=== PATIENT | female | born 1955 | race Caucasian/White ===

== ENCOUNTER 2017-11-06 09:56 | Day surgery (SDC) | payer OTHER, SELFPAY ==
--- NOTE | 2017-11-06 07:01 | W.COLOREPORT ---
Colonoscopy Report Date of procedure: 11/06/17 Pre-op diagnosis general: Colon Cancer screening Post-op diagnosis procedure note: other (multiple polyps, one large polyp at 12 cm) Procedure: Colonoscopy with polypectomy by forceps and hot snare Surgeon: Valerie Espinoza Anesthesia proc note operative: MAC (Dewey Garcia, REANNA/ David Vickers, ETHAN) Estimated blood loss (mL): 10 Pathology: other (multiple polyps) Complications: None Disposition: same day Indications: Mrs. Klein is a pleasant 62 year old female who was seen in the office to discuss a colonoscopy. Risks, benefits and complications have been reviewed. Complications include but are not limited to bleeding, pain, perforation, missed small lesion/polyp, sore throat, aspiration and adverse reaction to the medications. Questions were entertained and answered to their satisfaction and they wished to proceed. No guarantees were given or implied. Prep: Miralax/Dulcolax Procedure Start Time: 11:53 Procedure End Time: 12:32 Retraction Time: 37 minutes Findings: Large sessile mass at 10-12 cm. Removed piecemeal with a hot snare. A second smaller polyp found in the rectosigmoid junction at 10-12 cm. 4 other polyps removed. 2 in the transverse colon and 2 in the mid sigmoid colon. Procedure Description: After informed consent was obtained the patient was taken to the procedure room and placed in a left decubitous position. Monitors were applied and a time out was done. The patients name, date of , procedure, allergies to medications and metal in their body was reviewed. The patient was then sedated. Once sedated and comfortable a rectal exam was done. External exam showed some mild prolapse. Internal exam revealed a normal sphincter tone and no palpable masses. The scope was then introduced and retrofelexed. No internal hemorrhoids were identified. The scope was then advanced to the cecum without difficulty. The TI and appendiceal orifice were identified. The prep was good. The scope was then slowly retracted over 37 minutes back into the rectum. 2 polyps were removed in the transverse colon with cold forceps. 2 polyps were removed in the midsigmoid colon with forceps. 1 small sessile polyp was removed with forceps at 10-12 cm. Right next to that was a large multi-lobulated sessile polyp that was removed piecemeal with a hot snare. The area was tatooed. The scope was removed and the patient was woken up and taken back to Same day surgery in stable condition. The patient tolerated the procedure well and there were no immediate complications. Follow up: I am concerned about the larger polyp having some cancer in it. I will call Ysabel with the results. If the results show just a precancerous polyp then I will recommend having a sigmoidoscopy at 3 months to recheck the area for regrowth. If there is cancer then she will most likely need a resection.
--- NOTE | 2017-11-06 07:03 | PDOC.DSDIS_ITS ---
Discharge Plan Disposition Patient Disposition: HOME Condition: Good Discharge Details Reason For Visit: SCREENING Attending Provider: Valerie Espinoza Primary Care Provider: Marycruz Quevedo Home Meds and New Rx's Prescriptions: Continue albuterol sulfate [ProAir HFA] 8.5 GM HFA aerosol inhaler 2 puff Inhalation Q6H PRN PRNRF: 0 ibuprofen 200 MG capsule 200 mg PO Q4H PRN RF: 0 losartan [Cozaar] 25 MG tablet 25 mg PO DAILY RF: 0 cholecalciferol (vitamin D3) 1,000 UNIT capsule 1,000 unit PO DAILY RF: 0 sertraline 100 MG tablet 100 mg PO DAILY RF: 0 Discontinued bisacodyl [Bisa-Lax] 5 MG tablet,delayed release (DR/EC) 5 mg PO as directed Qty: 4 RF: 0 polyethylene glycol 3350 255 GM powder 255 gm PO as directed for colo Qty: 255 RF: 0 Discharge Instructions Instructions: Colonoscopy (DC), Diverticulosis (DC), Colorectal Polyps (DC) Additional Instructions: Findings: several polyps. One large in the recto-sigmoid area Follow up: I will call with results New Medications: none Please call if you develop: fevers >101.5 Nausea or Vomiting Abdominal pain that is not transient 1. Because there will be medication in your system for the next 24 hours, you may feel a little sleepy. Your coordination will be affected. Therefore: a. Do not drive or operate dangerous equipment for 24 hours. b. Do not drink alcohol beverages for 24 hours (not even beer). c. Plan to go home and rest for the day. 2. Generally there are no restrictions on your activity after a day or so has gone by, but you may feel a bit fatigued for a few days. 3 After you arrive home you may have a light meal and return to a normal diet as you can tolerate it without feeling sick to your stomach. 4. After surgery, you may feel pain or discomfort. This should be only transient , but if it persists please contact your doctor. 5. If there are any questions regarding the findings of your procedure, please feel free to contact your doctor. 6. If you are unable to contact your doctor with a problem, contact the hospital at [phone]. 7. Continue all your regular medications unless directed otherwise. I understand the above instructions and have no questions. Signature of Patient or Responsible Adult Escort Date/Time Name of Responsible Adult Escort Signature of Nurse Date/Time Activity:: Activity as Tolerated Diet:: high fiber diet
--- NOTE | 2017-11-06 07:08 | HPE_ITS ---
Assessment and Plan (1) Encounter for colonoscopy due to history of adenomatous colonic polyps: Current visit: No Status: Acute P\\ Colonoscopy under sedation Risks, benefits and complications have been reviewed. Complications include but are not limited to bleeding, pain, perforation, missed lesion/polyp , sore throat, aspiration and adverse reaction to the medications. Questions were entertained and answered to their satisfaction and they wished to proceed. No guarantees were given or implied. (2) Hx of colonic polyps: Current visit: No Status: Acute History of Present Illness Narrative: Mrs. Klein is a pleasant 62 year old female who is here to discuss a colonoscopy. She states she had a colonoscopy 4 or 5 years ago and was found to have a polyp. She was asked to return in 3 years but she was dealing with other things and so didn't schedule. She has no had a no melena, hematochezia, abdominal pain, changes in bowel habits or family history of colon cancer. She has HTN which is controlled, no hx of chest pain or SOB. There have been no changes in her health since she was seen in the office. Review of Systems Cardiovascular Reports system reviewed and no additional complaints, except as docu Respiratory Reports system reviewed and no additional complaints, except as docu PFSH Family History Other Alzheimer's dementia CHF (congestive heart failure) Cardiac arrest Lung cancer Medical History Acquired auditory processing disorder Anxiety Benign skin lesion of nose High cholesterol Hypertension Low back pain Tubular adenoma Social History Smoking/Tobacco Use Status: Never Surgical History Arthroplasty of knee (01/14/10) Arthroscopy, Shoulder (05/12/09) Colonoscopy - IV Sedation Colonoscopy - MAC (08/14/17) Hysterectomy, Laproscopic (01/27/04) Meds Home Medications Medication Instructions Recorded Confirmed Type albuterol sulfate [ProAir HFA] 2 puff INHALATION Q6H PRN PRN 06/27/16 11/03/17 History inhaler sertraline 100 mg PO DAILY 04/28/17 11/06/17 History cholecalciferol (vitamin D3) 1,000 unit PO DAILY NS 06/13/17 11/06/17 History ibuprofen 200 mg PO Q4H PRN tab-cap NS 06/13/17 11/03/17 History losartan [Cozaar] 25 mg PO DAILY tab-cap NS 06/13/17 11/06/17 History bisacodyl [Bisa-Lax] 5 mg PO as directed #4 tab 08/11/17 11/06/17 Rx polyethylene glycol 3350 255 gm PO as directed for colo 08/11/17 11/06/17 Rx #255 gm Allergies Allergy/AdvReac Type Severity Reaction Status Date / Time Penicillins Allergy Unknown Unverified 11/06/17 10:25 lisinopril AdvReac cough Unverified 11/06/17 10:25 Exam Resp Effort & Inspection: normal respiratory effort Auscultation: clear to auscultation bilaterally Cardio Rate: regular rate Rhythm: regular rhythm Heart Sounds: no gallops, no murmurs and no rubs
[2017-11-06 10:13] VITALS: BP 134/77; PULSE 58; RESP 16; TEMP 36.6; O2SAT 96
[2017-11-06] MEDS: Lactated Ringers 1,000 ML 80 ML IV (10:56)
--- NOTE | 2017-11-06 12:31 | BOWEL_PTH ---
PATIENT: Ysabel Klein LOC: [facility] U#:[id number] AGE/SX: 62/F ROOM: RE11/06/[address]: Valerie Espinoza MD : 1955 BED: DIS: 11/06/2017 SPEC #: [id number] RECD: 11/06/17 18:13 STATUS: RUSSELL RE #: [id number] FREEDOM: 11/06/17 12:[address]: Valerie Espinoza DEPT: Surgical Specimen RECD BY: Estephania Jiménez ENTERED: 11/06/17 18:16 SP TYPE: Bowel OTHR DR: Marycruz Quevedo Tissues: 1 - BIOPSY BOWEL 2 - BIOPSY BOWEL 3 - BIOPSY BOWEL 4 - BIOPSY BOWEL Procedures: GROSS AND MICRO LEVEL 4 Comments: [id number]
[2017-11-06 13:10] VITALS: BP 137/86; PULSE 52; RESP 18; TEMP 36.9; O2SAT 97
== END 2017-11-06 13:35 | disposition home or self-care (01) ==
LOC: SUR 09:56
PROVIDERS: PCP Physician Assistant Medical; Visit Provider Surgery
PROC: 0DJD8ZZ Inspection of Lower Intestinal Tract, Via Natural or Artificial Opening Endoscopic (ICD-10-PCS; CPT 45378; principal; 2017-11-06 11:30)
DX: Z12.11 Encounter for screening for malignant neoplasm of colon (principal); Z86.010 Personal history of colon polyps; I10 Essential (primary) hypertension
CPT/HCPCS: 45380; 45385; 88305; NC

== ENCOUNTER 2018-03-01 08:49 | Day surgery (SDC) | payer OTHER, SELFPAY ==
--- NOTE | 2018-03-01 07:07 | W.PM.HP.N ---
Date of service: 03/01/18 Assessment and Plan (1) Encounter for colonoscopy due to history of adenomatous colonic polyps: Current visit: No Status: Acute P\\ Flexible sigmoidoscopy under sedation Risks, benefits and complications have been reviewed. Complications include but are not limited to bleeding, perforation, pain, missed lesion or polyp, sore throat, aspiration, and adverse reaction to the medications. Questions were entertained and answered to the patient's satisfaction and they wish to proceed. No guarantees were given or implied. History of Present Illness Narrative: Ysabel is here today to discuss a flexible sigmoidoscopy. Her last Colonoscopy was in November and she was foun to have a tubulovillous adenoma of the rectum which was a regrowth. It is sessile and a good size. There was no dysplacia on the pathology results. Because it had re-grown I asked for her to come back so we could do a flexible sigmoidoscopy in 3 months and make sure that there is no re-growth. If there is then She will need a resection. If possible I would like to see if a transrectal excision would be possible. The patient denies any changes in bowel habits, melena, hematochezia, abdominal pain, unintentional weight loss and family history of colon cancer. The patient denies any chest pain or shortness of breath with activity. Review of Systems Constitutional Denies fever(s) Cardiovascular Denies rapid heart rate, Denies irregular heart rhythm, Denies dyspnea and Denies dyspnea on exertion Respiratory Denies dyspnea and Denies dyspnea on exertion [facility] Medical History Tubulovillous adenoma of rectum (Acute ~11/2017) Acquired auditory processing disorder Anxiety Benign skin lesion of nose High cholesterol Hypertension Low back pain Tubular adenoma Surgical History Arthroplasty of knee (01/14/10) Arthroscopy, Shoulder (05/12/09) Colonoscopy - IV Sedation Colonoscopy - MAC (08/14/17) Hysterectomy, Laproscopic (01/27/04) Family History Other Alzheimer's dementia CHF (congestive heart failure) Cardiac arrest Lung cancer Social History Smoking/Tobacco Use Status: Never alcohol intake: never substance use type: does not use Meds Home Medications Medication Instructions Recorded Confirmed Type ProAir HFA 2 puff INHALATION Q6H PRN PRN 06/27/16 03/01/18 History inhaler sertraline 100 mg PO HS 04/28/17 03/01/18 History cholecalciferol (vitamin D3) 1,000 unit PO DAILY NS 06/13/17 03/01/18 History ibuprofen 200 mg PO Q4H PRN tab-cap NS 06/13/17 03/01/18 History amlodipine 5 mg PO HS 02/28/18 03/01/18 History Allergies Allergy/AdvReac Type Severity Reaction Status Date / Time Penicillins Allergy Unknown Unverified 03/01/18 09:13 lisinopril AdvReac cough Unverified 03/01/18 09:13 Exam Resp Effort & Inspection: normal respiratory effort Auscultation: clear to auscultation bilaterally Cardio Rate: regular rate Rhythm: regular rhythm Heart Sounds: no gallops, no murmurs and no rubs
[2018-03-01 09:15] VITALS: BP 123/70; PULSE 61; RESP 16; TEMP 36.2; O2SAT 96
[2018-03-01] MEDS: Lactated Ringers 1,000 ML 80 ML IV (09:15)
--- NOTE | 2018-03-01 10:45 | BOWEL_PTH ---
PATIENT: Ysabel Klein LOC: [facility] U#:[id number] AGE/SX: 62/F ROOM: RE03/01/[address]: Valerie Espinoza MD : 1955 BED: DIS: 03/01/2018 SPEC #: [id number] RECD: 03/01/18 12:56 STATUS: RUSSELL REQ #: [id number] FREEDOM: 03/01/18 10:[address]: Valerie Espinoza DEPT: Surgical Specimen RECD BY: Estephania Jiménez ENTERED: 03/01/18 12:58 SP TYPE: Bowel OTHR DR: Marycruz Quevedo Tissues: 1 - BIOPSY BOWEL Procedures: GROSS AND MICRO LEVEL 4 Comments: [id number]
[2018-03-01] MEDS: Endoscopic Tattoo 5 ML SYR IJ (10:53)
--- NOTE | 2018-03-01 10:58 | W.COLOREPORT ---
Date of service: 03/01/18 Time of Service: 10:41 Colonoscopy Report Date of procedure: 03/01/18 Pre-op diagnosis general: recurrent recto-sigmoid polyp Post-op diagnosis procedure note: same Procedure: Flexible sigmoidoscopy with partial resection of recurrent polyp and tattooing Surgeon: Valerie Espinoza Anesthesia proc note operative: MAC (Deyanira Efrainrandy, DREDGEMASTER/ ASA 2) Estimated blood loss (mL): 3 Pathology: other (polyp at 18 cm) Complications: None Disposition: same day Indications: Ysabel is back today for a flexible sigmoidoscopy. She had a polyp with dysplasia at her first colonoscopy which I thought I had completely removed but it was sessile so I had her come back in 6 months and we repeated the flexible sigmoidoscopy and unfortunately there was regrowth of the polyp. I again tried to remove it in its entirety this time it came back as a tubulovillous adenoma without dysplasia. I had her come back in 3 months to recheck and make sure there is no regrowth. Risks, benefits, complications were reviewed with her again and she wished to proceed. No guarantees were given or implied Prep: Other (enemas x2) Procedure Start Time: 10:41 Procedure End Time: 10:59 Findings: regrowth of sessile polyp at 16-18 cm. Rectosigmoid junction. Procedure Description: After informed consent was obtained the patient was taken to the procedure room and placed in a left decubitous position. Monitors were applied and a time out was done. The patients name, date of , procedure, allergies to medications and metal in their body was reviewed. The patient was then sedated. Once sedated and comfortable a rectal exam was done. External exam was normal. Internal exam revealed a normal sphincter tone and no palpable masses. The scope was then introduced and retro-flexed. No internal hemorrhoids were identified. The scope was then advanced to 16-18 cm were the tattoo was. There was regrowth of the sessile polyp noted. Part of the polyp was again removed with a hot snare and another tattoo was done. The scope was removed and the patient was woken up and taken back to Same day surgery in stable condition. The patient tolerated the procedure well and there were no immediate complications. Follow up: I will refer patient to [facility] [place] for possible transrectal excision vs endoscopic resection of the polyp.
--- NOTE | 2018-03-01 11:06 | COLE_ITS ---
Date of service: 03/01/18 Time of Service: 10:41 Colonoscopy Report Date of procedure: 03/01/18 Pre-op diagnosis general: recurrent recto-sigmoid polyp Post-op diagnosis procedure note: same Procedure: Flexible sigmoidoscopy with partial resection of recurrent polyp and tattooing Surgeon: Valerie Espinoza Anesthesia proc note operative: MAC (Deyanira Efrainrandy, SENIOR CATEGORY MANAGER/ ASA 2) Estimated blood loss (mL): 3 Pathology: other (polyp at 18 cm) Complications: None Disposition: same day Indications: Ysabel is back today for a flexible sigmoidoscopy. She had a polyp with dysplasia at her first colonoscopy which I thought I had completely removed but it was sessile so I had her come back in 6 months and we repeated the flexible sigmoidoscopy and unfortunately there was regrowth of the polyp. I again tried to remove it in its entirety this time it came back as a tubulovillous adenoma without dysplasia. I had her come back in 3 months to recheck and make sure there is no regrowth. Risks, benefits, complications were reviewed with her again and she wished to proceed. No guarantees were given or implied Prep: Other (enemas x2) Procedure Start Time: 10:41 Procedure End Time: 10:59 Findings: regrowth of sessile polyp at 16-18 cm. Rectosigmoid junction. Procedure Description: After informed consent was obtained the patient was taken to the procedure room and placed in a left decubitous position. Monitors were applied and a time out was done. The patients name, date of , procedure, allergies to medications and metal in their body was reviewed. The patient was then sedated. Once sedated and comfortable a rectal exam was done. External exam was normal. Internal exam revealed a normal sphincter tone and no palpable masses. The scope was then introduced and retro-flexed. No internal hemorrhoids were identified. The scope was then advanced to 16-18 cm were the tattoo was. There was regrowth of the sessile polyp noted. Part of the polyp was again removed with a hot snare and another tattoo was done. The scope was removed and the patient was woken up and taken back to Same day surgery in stable condition. The patient tolerated the procedure well and there were no immediate complications. Follow up: I will refer patient to [facility] [place] colorectal for possible transrectal excision vs endoscopic resection of the polyp.
--- NOTE | 2018-03-01 11:06 | W.PM.DSUDISC ---
Discharge Plan Disposition Patient Disposition: HOME Condition: Good Discharge Details Reason For Visit: Hx of adenomatous polyps Attending Provider: Valerie Espinoza Primary Care Provider: Marycruz Quevedo Home Meds and New Rx's Prescriptions: Continued ProAir HFA 8.5 GM HFA aerosol inhaler 2 puff Inhalation Q6H PRN PRNRF: 0 ibuprofen 200 MG capsule 200 mg PO Q4H PRN RF: 0 cholecalciferol (vitamin D3) 1,000 UNIT capsule 1,000 unit PO DAILY RF: 0 sertraline 100 MG tablet 100 mg PO HS RF: 0 amlodipine 5 mg Tablet 5 mg PO HS RF: 0 Discharge Instructions Instructions: Flexible Sigmoidoscopy (DC) Additional Instructions: Findings: Re-growth of polyp Follow up: I will refer you to [facility] [place] to see if they could remove this through the rectum vs taken part of the bowel out. Please call if you develop: fevers >101.5 Nausea or Vomiting Abdominal pain that is not transient DAY SURGERY UNIT POST COLONOSCOPY INSTRUCTIONS 1. Because there will be medication in your system for the next 24 hours, you may feel a little sleepy. Your coordination will be affected. Therefore: a. Do not drive or operate dangerous equipment for 24 hours. b. Do not drink alcohol beverages for 24 hours (not even beer). c. Plan to go home and rest for the day. 2. Generally there are no restrictions on your activity after a day or so has gone by, but you may feel a bit fatigued for a few days. 3 After you arrive home you may have a light meal and return to a normal diet as you can tolerate it without feeling sick to your stomach. 4. After surgery, you may feel pain or discomfort. This should be only transient, but if it persists please contact your doctor. 5. If there are any questions regarding the findings of your procedure, please feel free to contact your doctor. 6. If you are unable to contact your doctor with a problem, contact the hospital at [phone]. 7. Continue all your regular medications unless directed otherwise. I understand the above instructions and have no questions. Signature of Patient or Responsible Adult Escort Date/Time Name of Responsible Adult Escort Signature of Nurse Date/Time Activity:: Activity as Tolerated Diet:: As Tolerated DS: Diagnosis Discharge Diagnosis (1) Encounter for colonoscopy due to history of adenomatous colonic polyps: Status: Acute
[2018-03-01 11:17] VITALS: BP 132/83; PULSE 59; RESP 16; TEMP 36.6; O2SAT 95
== END 2018-03-01 12:22 | disposition home or self-care (01) ==
PROVIDERS: PCP Physician Assistant Medical; Visit Provider Surgery
PROC: 0DJD8ZZ Inspection of Lower Intestinal Tract, Via Natural or Artificial Opening Endoscopic (ICD-10-PCS; CPT 45330; principal; 2018-03-01 09:45)
DX: Z12.11 Encounter for screening for malignant neoplasm of colon (principal); D12.5 Benign neoplasm of sigmoid colon; Z86.010 Personal history of colon polyps; I10 Essential (primary) hypertension
CPT/HCPCS: 45380; 45381; 88305; NC

== ENCOUNTER 2018-05-25 12:46 | Outpatient (CLI) | payer OTHER, SELFPAY ==
--- NOTE | 2018-05-25 09:51 | DI.RAD_ITS ---
SYMPTOM/DIAGNOSIS: LT KNEE PAIN, M25.562 LEFT KNEE: Four views were obtained. There is narrowing of the medial tibiofemoral cartilaginous joint space. There may be slight lateral patellar subluxation. No significant bony abnormality is seen. 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
== END 2018-05-25 13:06 ==
PROVIDERS: PCP Physician Assistant Medical; Visit Provider Specialist/Technologist Athletic Trainer
DX: M25.562 Pain in left knee (principal); M17.12 Unilateral primary osteoarthritis, left knee
CPT/HCPCS: 73562

== ENCOUNTER 2018-11-13 06:18 | Day surgery (SDC) | payer OTHER, SELFPAY ==
[2018-11-13 06:28] VITALS: BP 110/71; PULSE 59; RESP 16; TEMP 36.6; O2SAT 95
--- NOTE | 2018-11-13 06:41 | W.PM.HP.N ---
Date of service: 11/13/18 Time of Service: 06:44 Assessment and Plan Assessment and plan (1) Tubulovillous adenoma of rectum: Status: Acute Assessment and plan: P\\ Colonoscopy under sedation Risks, benefits and complications have been reviewed. Complications include but are not limited to bleeding, pain, perforation, missed small lesion/polyp, sore throat, aspiration and adverse reaction to the medications. Questions were entertained and answered to their satisfaction and they wished to proceed. No guarantees were given or implied. History of Present Illness Narrative: Ysabel is back to see me today to discuss a colonoscopy. She underwent a Transanal excision of s tubulovillous adenoma at [facility] [place]. Thankfully there was no neoplasm within it. She has done well since then. A colonoscopy was recommended 1 year from her last full colonoscopy which would have been August. She denies any melena , hematochezia, abdominal pain or weight loss. She does tell me that her new normal for BM's has changed. She now has one BM in the morning that is very loose. There have been no new issues in her health since she was last seen in the office Review of Systems Constitutional Constitutional: Denies fever(s) Cardiovascular Cardiovascular: Denies chest pain, Denies irregular heart rhythm, Denies palpitations and Denies dyspnea Respiratory Respiratory: Denies cough and Denies dyspnea Endocrine Endocrine: Denies palpitations [facility] Medical History Acquired auditory processing disorder Anxiety Benign skin lesion of nose High cholesterol Hypertension Low back pain Tubular adenoma Tubulovillous adenoma of rectum (Acute ~11/2017) Surgical History Arthroplasty of knee (01/14/10) RIGHT Arthroscopy, Shoulder (05/12/09) RIGHT Colonoscopy - IV Sedation Colonoscopy - MAC (08/14/17) Hysterectomy, Laproscopic (01/27/04) Sigmoidoscopy exam (Acute ~02/2018) Family History Other Alzheimer's dementia CHF (congestive heart failure) Cardiac arrest Lung cancer Social History Smoking/Tobacco Use Status: Never Alcohol Intake: current Alcohol Intake frequency: holidays/special occasions only Alcohol type: beer Drug use: Never Substance use type: does not use Do you feel safe at home: Yes Do you feel safe in your relationship?: Yes Meds Home Medications and Allergies Home Medications Medication Instructions Recorded Confirmed Type albuterol sulfate [ProAir HFA] 2 puff INHALATION Q6H PRN PRN 06/27/16 11/13/18 History inhaler sertraline 100 mg PO HS 04/28/17 11/13/18 History cholecalciferol (vitamin D3) 1,000 unit PO DAILY NS 06/13/17 11/13/18 History ibuprofen 200 mg PO Q4H PRN tab-cap NS 06/13/17 11/13/18 History amlodipine 5 mg PO HS 02/28/18 11/13/18 History Allergies Allergy/AdvReac Type Severity Reaction Status Date / Time Penicillins Allergy Unknown Verified 11/09/18 10:19 lisinopril AdvReac cough Verified 11/09/18 10:19 Exam HENMT Head: normocephalic and atraumatic Resp Effort & Inspection: normal respiratory effort Auscultation: clear to auscultation bilaterally Cardio Rate: regular rate Rhythm: regular rhythm Heart Sounds: no gallops, no murmurs and no rubs GI Inspection: normal to inspection Palpation: soft and no hepatosplenomegaly Auscultation: normal bowel sounds Results Last Vital Signs Temp 97.9 F 11/13/18 06:28 Pulse 59 L 11/13/18 06:28 Resp 16 11/13/18 06:28 BP 110/71 11/13/18 06:28 Pulse Ox 95 11/13/18 06:28
--- NOTE | 2018-11-13 06:44 | W.COLOREPORT ---
Date of service: 11/13/18 Time of Service: 07:33 Colonoscopy Report Date of procedure: 11/13/18 Pre-op diagnosis general: Hx of tubulovillous adenoma Post-op diagnosis procedure note: other (polyps) Procedure: Colonoscopy with polypectomy Surgeon: Valerie Espinoza Anesthesia proc note operative: other (General/ ASA 2/Dewey chanel CRNA) Estimated blood loss (mL): 4 Pathology: other (sigmoid polyp and sigmoid polyp at previous resection site) Complications: None Disposition: same day Indications: Mrs. Klein is a pleasant 63-year-old female whom I know very well. She was noted to have a large flat tubulovillous adenoma that I tried to remove completely. I followed her every 6 months and it continued to recur. She was referred to [facility] colorectal surgery who was able to do a trans-anal resection of the polyp. The pathology thankfully came back as benign. Her colorectal surgeon recommended a colonoscopy 1 year after her last one. She is here for that today. Risks, benefits and complications have been reviewed. Complications include but are not limited to bleeding, pain, perforation, missed small lesion/polyp, sore throat, aspiration and adverse reaction to the medications. Questions were entertained and answered to their satisfaction and they wished to proceed. No guarantees were given or implied. Prep: Miralax/Dulcolax Procedure Start Time: :33 Procedure End Time: 07:56 Retraction Time: 14 minutes Findings: One small sessile polyp proximal to the previous resection site and sessile polyp surrounding the previous resection site Procedure Description: After informed consent was obtained the patient was taken to the procedure room and placed in a left decubitous position. Monitors were applied and a time out was done. The patients name, date of , procedure, allergies to medications and metal in their body was reviewed. The patient was then sedated. Once sedated and comfortable a rectal exam was done. External exam was normal. Internal exam revealed a normal sphincter tone and no palpable masses. The scope was then introduced and retro-flexed. No internal hemorrhoids, masses or polyps were identified. The scope was then advanced to the cecum with some difficulty due to tortuousity. The TI and appendiceal orifice were identified. The prep was adequate. The scope was then slowly retracted over 14 minutes back into the rectum. Polyps were removed with cold forceps in the sigmoid colon proximal to the previous resection site and biopsies were done of a sessile polyp surrounding the previous resection site. The scope was removed and the patient was woken up and taken back to Same day surgery in stable condition. The patient tolerated the procedure well and there were no immediate complications. Follow up: Depending on the pathology results. If there has been re-growth of the polyp at the resection site I will refer her back to Dr. Tolliver for his opinion of re-resection trans-anal or removal of the sigmoid colon.
--- NOTE | 2018-11-13 06:46 | W.PM.DSUDISC ---
Discharge Plan Disposition Patient Disposition: HOME Condition: Good Discharge Details Reason For Visit: SCREENING Attending Provider: Valerie Espinoza Primary Care Provider: Marycruz Quevedo Home Meds and New Rx's Prescriptions: Continued albuterol sulfate [ProAir HFA] 8.5 GM HFA aerosol inhaler 2 puff Inhalation Q6H PRN PRNRF: 0 ibuprofen 200 MG capsule 200 mg PO Q4H PRN RF: 0 cholecalciferol (vitamin D3) 1,000 UNIT capsule 1,000 unit PO DAILY RF: 0 sertraline 100 MG tablet 100 mg PO HS RF: 0 amlodipine 5 mg Tablet 5 mg PO HS RF: 0 Discharge Instructions Additional Instructions: Findings: 2 flat polyps. One is at the old resection site Follow up: I will call you with results, if the polyp has recurred then will have you follow up with Dr. Tolliver for his opinion on transanal re-resection vs removal of that part of your colon. Please call if you develop: fevers >101.5 Nausea or Vomiting Abdominal pain that is not transient DAY SURGERY UNIT POST ENDOSCOPY INSTRUCTIONS 1. Because there will be medication in your system for the next 24 hours, you may feel a little sleepy. Your coordination will be affected. Therefore: a. Do not drive or operate dangerous equipment for 24 hours. b. Do not drink alcohol beverages for 24 hours (not even beer). c. Plan to go home and rest for the day. 2. Generally there are no restrictions on your activity after a day or so has gone by, but you may feel a bit fatigued for a few days. 3 After you arrive home you may have a light meal and return to a normal diet as you can tolerate it without feeling sick to your stomach. 4. After surgery, you may feel pain or discomfort. This should be only transient, but if it persists please contact your doctor. 5. If there are any questions regarding the findings of your procedure, please feel free to contact your doctor. 6. If you are unable to contact your doctor with a problem, contact the hospital at [phone]. 7. Continue all your regular medications unless directed otherwise. I understand the above instructions and have no questions. Signature of Patient or Responsible Adult Escort Date/Time Name of Responsible Adult Escort Signature of Nurse Date/Time Activity:: Activity as Tolerated Diet:: As Tolerated Discharge Orders Discharge Orders: Discharge Order (Routine); Ordered 11/13/18 Ordered By: Valerie Espinoza DS: Diagnosis Discharge Diagnosis (1) Tubulovillous adenoma of rectum: Status: Acute
[2018-11-13] MEDS: Lactated Ringers 1,000 ML 80 ML IV (07:01)
--- NOTE | 2018-11-13 07:51 | BOWEL_PTH ---
PATIENT: Ysabel Klein LOC: [facility] U#:[id number] AGE/SX: 63/F ROOM: RE11/13/[address]: Valerie Espinoza MD : 1955 BED: DIS: 11/13/2018 SPEC #: [id number] RECD: 11/13/18 12:37 STATUS: RUSSELL REQ #: [id number] FREEDOM: 11/13/18 07:[address]: Valerie Espinoza DEPT: Surgical Specimen RECD BY: Estephania Jiménez ENTERED: 11/13/18 12:39 SP TYPE: Bowel OTHR DR: Marycruz Quevedo Tissues: 1 - BIOPSY BOWEL 2 - BIOPSY BOWEL Procedures: GROSS AND MICRO LEVEL 4 Comments: [id number]
[2018-11-13 08:30] VITALS: BP 105/71; PULSE 69; RESP 15; TEMP 36.4; O2SAT 97
== END 2018-11-13 09:15 | disposition home or self-care (01) ==
PROVIDERS: PCP Physician Assistant Medical; Visit Provider Surgery
PROC: 0DJD8ZZ Inspection of Lower Intestinal Tract, Via Natural or Artificial Opening Endoscopic (ICD-10-PCS; CPT 45378; principal; 2018-11-13 07:30)
DX: Z12.11 Encounter for screening for malignant neoplasm of colon (principal); D12.5 Benign neoplasm of sigmoid colon; K63.5 Polyp of colon; K63.89 Other specified diseases of intestine; Z86.010 Personal history of colon polyps; I10 Essential (primary) hypertension
CPT/HCPCS: 45380; 88305; NC; J2250; J3010

== ENCOUNTER 2019-01-18 01:58 | Outpatient (CLI) | payer OTHER, SELFPAY ==
--- NOTE | 2019-01-18 08:04 | DI.MAMMO_ITS ---
EXAM: MG MAMMO SCREENING CLINICAL HISTORY: SCREENING, Z12.31, PREVENTATIVE CARE, Z00.00 TECHNIQUE: Bilateral full field digital CC and MLO mammographic images were obtained with 3D tomosyn thesis and utilizing computer aided detection (CAD). COMPARISON: Available for comparison. FINDINGS: Masses/Architectural Distortion: None seen. Microcalcifications: No suspicious pleomorphic-type are seen. Skin Thickening/Nipple Retraction: None. IMPRESSION: 1. No significant interval change with no specific features of malignancy noted. 2. Unless there is more urgent need, screening mammography is recommended, as per [place] guidelines. ACR BI-RAD Category- 1 Negative Breast Density - Category B - Scattered areas of fibroglandular density A negative radiographic report should not delay biopsy if a dominant or clinically suspicious mass is present. Up to ten percent of cancers are not identified on mammography. A negative report may reinforce clinical impression. Adenosis and dense breasts may obscure an underlying neoplasm. False positive reports average 6 to 10%. Patient will receive a letter notifying them of these results.
== END 2019-01-18 02:18 ==
PROVIDERS: PCP Physician Assistant Medical; Visit Provider Physician Assistant Medical
DX: Z12.31 Encounter for screening mammogram for malignant neoplasm of breast (principal); Z00.00 Encounter for general adult medical examination without abnormal findings
CPT/HCPCS: 77063; 77067

== ENCOUNTER 2019-02-15 02:14 | Outpatient (CLI) | payer OTHER, SELFPAY ==
--- NOTE | 2019-02-15 13:21 | NS.NUTBLAN_ITS ---
Description: Met with Ysabel today in office to discuss her diet/GI symptoms s/p removal of 6 inches of her colon secondary to polyp removal 6 weeks ago. Ysabel appears well nourished. Ysabel reports confusion of what she should eat s/p surgery and reports that diarrhea has subsided however continues to have rectal pain most days. Diet recall indicates Ysabel does not drink enough fluids and her diet is low in fiber and protein. Explained to Ysabel that GI symptoms common s/p surgery but may also be likely due to lack of hydration and fiber in diet. Intervention: Reviewed with Ysabel optimal diet s/p colon resection. Encouraged increased intake of fruits/vegetables, avoidance of insoluable fiber and increase of lean protein, whole wheat grains and healthy fats. Education material provided. Plan: follow up with MD if symptoms of concern, fu with continuity writer if continues to need assistance in diet education. recommend 1 -2 serving metamucil daily as well. Maria Ines Faye, , RDN
== END 2019-02-15 02:34 ==
PROVIDERS: PCP Physician Assistant Medical; Visit Provider Dietitian, Registered
DX: K63.5 Polyp of colon (principal); D12.5 Benign neoplasm of sigmoid colon; Z98.890 Other specified postprocedural states; Z71.3 Dietary counseling and surveillance
CPT/HCPCS: 97802

== ENCOUNTER 2019-09-25 17:48 | Outpatient (REF) | payer OTHER, SELFPAY ==
[2019-09-27 11:34] LABS: Campylobacter PCR Negative (Negative); Salmonella PCR Negative (Negative); Shiga Toxin PCR Negative (Negative); Shigella/Enteroinvasive Ecoli Negative (Negative)
== END 2019-09-25 18:08 ==
LOC: NCHCN 17:48
PROVIDERS: PCP Physician Assistant Medical; Visit Provider Physician Assistant Medical
DX: R19.7 Diarrhea, unspecified (principal)
CPT/HCPCS: 87329; 87505; 83630; 87324

== ENCOUNTER 2019-09-30 16:27 | Outpatient (REF) | payer OTHER, SELFPAY | END 2019-09-30 16:47 | LOC: NCHCN 16:27 | PROVIDERS: PCP Physician Assistant Medical; Visit Provider Physician Assistant Medical | DX: R19.7 Diarrhea, unspecified (principal) | CPT/HCPCS: 83630; 87324 ==

== ENCOUNTER 2019-10-08 00:31 | Outpatient (CLI) | payer OTHER, SELFPAY ==
[2019-10-08 07:55] LABS: Abs Immature Grans 0.01 10^3/uL (0.0-0.06); Absolute Basophil Count 0.05 10^3/uL (0.0-0.2); Absolute Eosinophil Count 0.22 10^3/uL (0.0-0.7); Absolute Lymphocyte Count 1.38 10^3/uL (1.2-3.4); Absolute Monocyte Count 0.74 10^3/uL (0.1-0.8); Absolute Neutrophil Count 3.37 10^3/uL (1.2-6.7); Basophils % 0.9; Eosinophils % 3.8; HCT 41.8 % (36.0-46.0); Immature Grans % 0.2; Lymphocytes % 23.9; MCH 30.7 pg (27.0-33.0); MCHC 33.5 % (32.0-36.0); MCV 91.7 fL (80-95); MPV 10.1 fL (8.0-11.0); Monocytes % 12.8; Neutrophils % 58.4; Nucleated RBC 0 %; Platelet Count 281 10^3/uL (130-400); RBC 4.56 10^6/uL (3.93-5.22); RDW 12.3 % (11.7-14.6); RDW-SD 41.3 fL; WBC 5.77 10^3/uL (4.4-10.8)
[2019-10-08 08:22] LABS: ALT 24 U/L (14-59); AST 17 U/L (15-37); Albumin 4.2 g/dL (3.4-5.0); Alkaline Phosphatase 61 U/L (46-116); BUN 16 mg/dL (7-18); Bilirubin, Total 0.6 mg/dL (0.2-1.0); CREATININE 0.79 mg/dL (0.55-1.02); Calcium 9.6 mg/dL (8.5-10.1); Calculated LDL 133 mg/dL (<100); Chloride 106 mmol/L (98-107); Cholesterol 217 mg/dL (<200); Glucose 110 mg/dL (74-106); HDL Cholesterol 56 mg/dL (40-60); Potassium 3.7 mmol/L (3.5-5.1); Sodium 142 mmol/L (136-145); Total Protein 7.8 g/dL (6.4-8.2); Triglyceride 140 mg/dL (<150)
[2019-10-08 09:07] LABS: ESR 16 mm/hr (0-30)
--- NOTE | 2019-10-08 09:12 | DI.CT_ITS ---
EXAM: CT ABDOMEN PELVIS W INDICATION: PERSISTENT DIARRHEA,R19.7,TUBULAR ADENOMA OF COLON,D12.6. COMPARISON: No exams were available for comparison TECHNIQUE: FINDINGS: CT examination of the abdomen and pelvis was performed with a bolus infusion of 89 cc of Omnipaque 35 0. Images obtained through the lung bases are unremarkable. Liver, spleen and pancreas appear normal. Gallbladder and bile ducts are CT normal. Adrenals appear normal bilaterally. Right kidney and left kidney are noted to have small cortical cy sts. There is a tiny nonobstructing left renal midpole calculus. No ureteral calcification. Urinar y bladder unremarkable. No hydronephrosis.. Abdominal aorta is of normal diameter and no major vascular abnormality is seen. No abdominal wall hernia. No abdominal or pelvic adenopathy. [employer] structures appear intact for age. Appendix is normal. No evidence of diverticulitis or bowel obs truction. Prior rectosigmoid anastomosis noted. No evidence of leakage. No pelvic adenopathy or fl uid collection. IMPRESSION: No evidence of acute intra-abdominal process. RADIATION DOSE DELIVERED: 1,033.24mGy.cm Total DLP 1,033.24mGy.cm Total DLP
[2019-10-08] MEDS: Omnipaque 350 MG/ML 100 ML BTL IJ (09:16)
== END 2019-10-08 00:51 ==
PROVIDERS: PCP Physician Assistant Medical; Visit Provider Physician Assistant Medical
DX: R19.7 Diarrhea, unspecified (principal); D12.6 Benign neoplasm of colon, unspecified; Z00.00 Encounter for general adult medical examination without abnormal findings; I10 Essential (primary) hypertension
CPT/HCPCS: 80053; 80061; 85652; 74177; 85025; J3490

== ENCOUNTER 2019-11-13 06:23 | Day surgery (SDC) | payer BC, SELFPAY ==
[2019-11-13 06:42] VITALS: BP 119/85; PULSE 65; RESP 16; TEMP 36.7; O2SAT 96
--- NOTE | 2019-11-13 06:44 | W.COLOREPORT ---
Date of service: 11/13/19 Time of Service: 07:50 Colonoscopy Report Date of procedure: 11/13/19 Pre-op diagnosis general: Diarrhea, Hx of polyps Post-op diagnosis procedure note: other (same and sigmoid colon polyp) Procedure: Colonoscopy with polypectomy Surgeon: Valerie Espinoza Anesthesia proc note operative: other (general/ ASA /) Estimated blood loss (mL): 2 Pathology: other (sigmoid polyp) Complications: None Disposition: same day Indications: Ysabel has been having 10 loose stools per day for the last months. She is worried about another large polyp. Differential diagnosis includes colon mass/large polyp, IBS after Gastroenteritis, Colonoscopy under sedation Risks, benefits and complications have been reviewed. Complications include but are not limited to bleeding, pain, perforation, missed small lesion/polyp, sore throat, aspiration and adverse reaction to the medications. Questions were entertained and answered to their satisfaction and they wished to proceed. No guarantees were given or implied. Prep: Miralax/Dulcolax Procedure Start Time: 07:25 Procedure End Time: 07:44 Retraction Time: 12 minutes Findings: 1. Mild diverticulosis of descending and sigmoid colon 2. One small sigmoid polyp at the anastamosis 3. Wide open anastamosis Procedure Description: After informed consent was obtained the patient was taken to the procedure room and placed in a left decubitous position. Monitors were applied and a time out was done. The patients name, date of , procedure, allergies to medications and metal in their body was reviewed. The patient was then sedated. Once sedated and comfortable a rectal exam was done. External exam was normal. Internal exam revealed a normal sphincter tone and no palpable masses. The scope was then introduced and retro-flexed. No internal hemorrhoids were identified. The scope was then advanced to the cecum without difficulty. The ileocecal valve and appendiceal orifice were identified. The prep was good. The scope was then slowly retracted over 12 minutes back into the rectum. Polyps were removed with cold forceps in the sigmoid colon x1. There was mild diverticulosis noted in the descending and sigmoid colon. There was a wide open side by side anastamosis. There was no recurrence of polyp at the anastamosis. There was no strictures noted. The scope was removed and the patient was woken up and taken back to Same day surgery in stable condition. The patient tolerated the procedure well and there were no immediate complications. Follow up: The patient should follow up in 5 years unless they develop changes in bowel habits or other new gastrointestinal complaints.
--- NOTE | 2019-11-13 06:45 | W.PM.DSUDISC ---
Discharge Plan Disposition Patient Disposition: HOME Condition: Good Discharge Details Reason For Visit: diarrhea, hx of colon polyps Attending Provider: Valerie Espinoza Primary Care Provider: Marycruz Quevedo Home Meds and New Rx's Prescriptions: Continued ibuprofen 200 MG capsule 200 mg PO Q4H PRN RF: 0 cholecalciferol (vitamin D3) 1,000 UNIT capsule 1,000 unit PO DAILY RF: 0 sertraline 100 MG tablet 100 mg PO HS RF: 0 amlodipine 5 mg Tablet 5 mg PO HS RF: 0 Discharge Instructions Additional Instructions: Findings: one small benign appearing polyp. Anastamosis was wide open Follow up: 5 years Please call if you develop: fevers >101.5 Nausea or Vomiting Abdominal pain that is not transient DAY SURGERY UNIT POST ENDOSCOPY INSTRUCTIONS 1. Because there will be medication in your system for the next 24 hours, you may feel a little sleepy. Your coordination will be affected. Therefore: a. Do not drive or operate dangerous equipment for 24 hours. b. Do not drink alcohol beverages for 24 hours (not even beer). c. Plan to go home and rest for the day. 2. Generally there are no restrictions on your activity after a day or so has gone by, but you may feel a bit fatigued for a few days. 3 After you arrive home you may have a light meal and return to a normal diet as you can tolerate it without feeling sick to your stomach. 4. After surgery, you may feel pain or discomfort. This should be only transient, but if it persists please contact your doctor. 5. If there are any questions regarding the findings of your procedure, please feel free to contact your doctor. 6. If you are unable to contact your doctor with a problem, contact the hospital at [phone]. 7. Continue all your regular medications unless directed otherwise. I understand the above instructions and have no questions. Signature of Patient or Responsible Adult Escort Date/Time Name of Responsible Adult Escort Signature of Nurse Date/Time Activity:: Activity as Tolerated Diet:: As Tolerated Discharge Orders Discharge Orders: Discharge Order (Routine); Ordered 11/13/19 Ordered By: Valerie Espinoza
[2019-11-13] MEDS: Lactated Ringers 1,000 ML 80 ML IV (07:08)
--- NOTE | 2019-11-13 07:42 | BOWEL_PTH ---
PATIENT: Ysabel Klein LOC: [facility] U#:[id number] AGE/SX: 64/F ROOM: RE11/13/[address]: Valerie Espinoza MD : 1955 BED: DIS: 11/13/2019 SPEC #: [id number] RECD: 11/13/19 12:39 STATUS: RUSSELL REQ #: [id number] FREEDOM: 11/13/19 07:[address]: Valerie Espinoza DEPT: Surgical Specimen RECD BY: Estephania Jiménez ENTERED: 11/13/19 12:39 SP TYPE: Bowel OTHR DR: Marycruz Quevedo Tissues: 1 - BIOPSY BOWEL Procedures: GROSS AND MICRO LEVEL 4 Comments: [id number]
[2019-11-13 08:26] VITALS: BP 125/84; PULSE 68; RESP 16; TEMP 36.4; O2SAT 94
== END 2019-11-13 08:44 | disposition home or self-care (01) ==
PROVIDERS: PCP Physician Assistant Medical; Visit Provider Surgery
PROC: 0DJD8ZZ Inspection of Lower Intestinal Tract, Via Natural or Artificial Opening Endoscopic (ICD-10-PCS; CPT 45378; principal; 2019-11-13 07:30)
DX: R19.7 Diarrhea, unspecified (principal); Z86.010 Personal history of colon polyps; K57.30 Diverticulosis of large intestine without perforation or abscess without bleeding; Z98.0 Intestinal bypass and anastomosis status
CPT/HCPCS: 45380; 88305; J2001

== ENCOUNTER 2020-03-02 00:58 | Outpatient (CLI) | payer BC, SELFPAY ==
--- NOTE | 2020-03-02 | DI.MAMMO_ITS ---
EXAM: MG MAMMO SCREENING CLINICAL HISTORY: SCREENING, [facility],Z00.00 TECHNIQUE: Bilateral full field digital CC and MLO mammographic images were obtained with 3D tomosyn thesis and utilizing computer aided detection (CAD). COMPARISON: Available for comparison. FINDINGS: Masses/Architectural Distortion: Asymmetric breast tissue in the upper central left breast on the med iolateral oblique view which appears more prominent compared to the prior examination. Microcalcifications: No suspicious pleomorphic-type are seen. Skin Thickening/Nipple Retraction: None. IMPRESSION: 1. Asymmetric breast tissue in the upper central left breast on the MLO view. 2. This area should be further evaluated with a spot compression view. Ultrasound may be indicated a t that time. BI-RADS Category 0 - Assessment Incomplete: Need additional imaging evaluation Breast Density - Category B - Scattered areas of fibroglandular density Breast density category C or D implies that the patient has dense breast tissue. Dense breast tissue is very common and is not abnormal but dense breast tissue can make it harder to find cancer on a ma mmogram. Also, dense breast tissue may increase their breast cancer risk. This information about the result of the mammogram report was provided to the patient to raise their awareness. Use this report when you speak with the patient about their risks for breast cancer, which includes their family hist ory. At that time, you may recommend for more screening tests (Ultrasound or MRI) as they might be us eful based on their risk. A negative radiographic report should not delay biopsy if a dominant or clinically suspicious mass is present. Up to ten percent of cancers are not identified on mammography. A negative report may reinforce clinical impression. Adenosis and dense breasts may obscure an underlying neoplasm. False positive reports average 6 to 10%. Patient will receive a letter notifying them of these results.
== END 2020-03-02 01:18 ==
PROVIDERS: PCP Physician Assistant Medical; Visit Provider Physician Assistant Medical
DX: Z12.31 Encounter for screening mammogram for malignant neoplasm of breast (principal); R92.8 Other abnormal and inconclusive findings on diagnostic imaging of breast
CPT/HCPCS: 77063; 77067

== ENCOUNTER 2020-03-06 03:05 | Outpatient (CLI) | payer BC, SELFPAY ==
--- NOTE | 2020-03-06 14:28 | DI.MAMMO_ITS ---
EXAM: MG MAMMO SCREEN CALL BACK UNI and U/S breast LT limited CLINICAL HISTORY: F/U MAMMO, ASYMMETRIC BREAST TISSUE UPPER CENTRAL LT BREAST. TECHNIQUE: Craniocaudal and mediolateral oblique Full Field Digital Mammography views of the left br east with Computer Aided Diagnosis followed by Tomosynthesis and left breast ultrasound. COMPARISON: Comparison with prior examinations. FINDINGS: Mammography/Tomosynthesis: Masses/Architectural Distortion: The asymmetric density in the upper left breast has a similar appear ance compared to prior examinations dating back to 2010. Microcalcifictions: No suspicious pleomorphic-type are seen. Skin Thickening/Nipple Retraction: None. Left breast US: Echotexture: Normal appearance of the glandular tissue. Shadowing: No suspicious foci. Cyst: None. Solid lesions: None seen. Ductal dilation: None. IMPRESSION: 1. No evidence of malignancy is noted. 2. Unless there is more urgent need, follow-up screening mammography is recommended, as per [place] [employer] guidelines. 3. The findings were discussed with the patient on the date of the examination. BI-RADS Category 1 - Negative Breast Density - Category B - Scattered areas of fibroglandular density Breast density Category C or D implies that the patient has dense breast tissue. Dense breast tissue can make it harder to find cancer on a mammogram. Dense breast tissue is also associated with an incr eased risk of breast cancer. This information about the result of the mammogram report was provided to the patient to raise their awareness. Use this report when you speak with the patient about their risks for breast cancer, which includes their family history. At that time, you may recommend additional screening tests (Ultrasoun d or MRI) as these tests may add significant information. A negative radiographic report should not delay biopsy if a dominant or clinically suspicious mass is present. Up to ten percent of cancers are not identified on mammography. A negative report may reinforce clinical impression. Adenosis and dense breasts may obscure an underlying neoplasm. False positive reports average 6 to 10%. Patient will receive a letter notifying them of these results.
== END 2020-03-06 03:25 ==
PROVIDERS: PCP Physician Assistant Medical; Visit Provider Physician Assistant Medical
DX: R92.8 Other abnormal and inconclusive findings on diagnostic imaging of breast (principal); N64.89 Other specified disorders of breast
CPT/HCPCS: 76642; 77063; 77067

== ENCOUNTER 2020-11-10 17:04 | Outpatient (REF) | payer BC, SELFPAY ==
[2020-11-12 10:48] LABS: COVID-19 RT-PCR UVMMC Result Negative (Negative)
== END 2020-11-10 17:05 | disposition home or self-care (01) ==
LOC: NCHCN 17:04
PROVIDERS: PCP Physician Assistant Medical; Visit Provider Nurse Practitioner Family
DX: Z20.822 Contact with and (suspected) exposure to COVID-19 (principal)
CPT/HCPCS: U0003

== ENCOUNTER 2020-11-25 17:42 | Outpatient (REF) | payer BC, SELFPAY ==
[2020-11-25 21:12] LABS: Hemoglobin A1C 5.8 % (<5.7)
[2020-11-25 21:15] LABS: ALT 26 U/L (14-59); AST 18 U/L (15-37); Albumin 4.4 g/dL (3.4-5.0); Alkaline Phosphatase 70 U/L (46-116); Anion Gap 9.5 mmol/L (3-11); BUN 12 mg/dL (7-18); Bilirubin, Total 0.8 mg/dL (0.2-1.0); CO2 27.5 mmol/L (21.0-32.0); CREATININE 0.8 mg/dL (0.55-1.02); Calcium 9.5 mg/dL (8.5-10.1); Calculated LDL 159 mg/dL (<100); Chloride 104 mmol/L (98-107); Cholesterol 238 mg/dL (<200); Glucose 86 mg/dL (74-106); HDL Cholesterol 61 mg/dL (40-60); Potassium 4.1 mmol/L (3.5-5.1); Sodium 141 mmol/L (136-145); Total Protein 7.7 g/dL (6.4-8.2); Triglyceride 93 mg/dL (<150)
== END 2020-11-25 17:43 | disposition home or self-care (01) ==
LOC: NCHCN 17:42
PROVIDERS: PCP Physician Assistant Medical; Visit Provider Physician Assistant Medical
DX: I10 Essential (primary) hypertension (principal); R73.9 Hyperglycemia, unspecified
CPT/HCPCS: 80053; 80061; 83036

== ENCOUNTER 2021-05-05 00:32 | Outpatient (CLI) | payer BC, SELFPAY ==
--- NOTE | 2021-05-05 07:50 | DI.MAMMO_ITS ---
Exam(s) MAMMO SCREENING EXAM: MAMMO SCREENING CLINICAL HISTORY: SCREENING, [facility], Z00.00. TECHNIQUE: Bilateral full field digital CC and MLO mammographic images were obtained with 3D tomosyn thesis and utilizing computer aided detection (CAD). COMPARISON: Prior mammograms were reviewed, the most recent being February 2020. Ultrasound February 2020 was also reviewed. FINDINGS: The previously described asymmetric density posteriorly in the left breast is again noted exhibiting minimal if any change. This is approximately 12 o'clock. Appearance on the MLO view is also unchang ed There are no new spiculated masses nor malignant appearing microcalcification groups. There is no significant architectural distortion nor skin thickening-retraction. IMPRESSION: No radiographic evidence of malignancy. BI-RADS Category 1 - Negative Breast Density - Category B - Scattered areas of fibroglandular density Breast density Category C or D implies that the patient has dense breast tissue. Dense breast tissue can make it harder to find cancer on a mammogram. Dense breast tissue is also associated with an incr eased risk of breast cancer. This information about the result of the mammogram report was provided to the patient to raise their awareness. Use this report when you speak with the patient about their risks for breast cancer, which includes their family history. At that time, you may recommend additional screening tests (Ultrasoun d or MRI) as these tests may add significant information. A negative radiographic report should not delay biopsy if a dominant or clinically suspicious mass is present. Up to ten percent of cancers are not identified on mammography. A negative report may reinforce clinical impression. Adenosis and dense breasts may obscure an underlying neoplasm. False positive reports average 6 to 10%. Patient will receive a letter notifying them of these results.
== END 2021-05-05 00:52 ==
PROVIDERS: PCP Physician Assistant Medical; Visit Provider Physician Assistant Medical
DX: Z12.31 Encounter for screening mammogram for malignant neoplasm of breast (principal)
CPT/HCPCS: 77063; 77067

== ENCOUNTER 2021-08-02 13:01 | Outpatient (REF) | payer BC, SELFPAY ==
[2021-08-02 16:29] LABS: ALT 25 U/L (14-59); AST 31 U/L (15-37); Albumin 3.7 g/dL (3.4-5.0); Alkaline Phosphatase 62 U/L (46-116); Anion Gap 10.1 mmol/L (3-11); BUN 14 mg/dL (7-18); Bilirubin, Total 0.9 mg/dL (0.2-1.0); CO2 21.9 mmol/L (21.0-32.0); CREATININE 0.8 mg/dL (0.55-1.02); Chloride 104 mmol/L (98-107); Glucose 112 mg/dL (74-106); Potassium 3.8 mmol/L (3.5-5.1); Sodium 136 mmol/L (136-145); Total Protein 7.1 g/dL (6.4-8.2)
[2021-08-02 23:33] LABS: Calculated LDL 107 mg/dL (<100); Cholesterol 199 mg/dL (<200); HDL Cholesterol 62 mg/dL (40-60); Triglyceride 150 mg/dL (<150)
== END 2021-08-02 13:02 | disposition home or self-care (01) ==
LOC: NCHCN 13:01
PROVIDERS: PCP Physician Assistant Medical; Visit Provider Physician Assistant Medical
DX: R73.03 Prediabetes (principal); E78.70 Disorder of bile acid and cholesterol metabolism, unspecified
CPT/HCPCS: 80053; 80061; 83036

== ENCOUNTER → 2021-08-19 01:24 | Outpatient (CLI) | payer BC, SELFPAY ==
--- NOTE | 2021-08-19 | DI.MRI_ITS ---
Exam(s) MR LUMBAR SPINE WO EXAM: MR LUMBAR SPINE WO CLINICAL HISTORY: LOW BACK PAIN, M54.5. TECHNIQUE: Multiplanar multisequence MRI of the Lumbar spine was performed. COMPARISON: Plain films available time this MRI interpretation. FINDINGS: Five lumbar vertebrae are presumed. Conus medullaris is at normal level. There is no evidence of conus mass nor subjacent clumping of in trathecal nerve roots to suggest arachnoiditis. The distal thecal sac appears unremarkable.There is no evidence of Tarlov intrasacral cysts nor other significant findings within the sacral canal Bones:There are no fractures nor ominous osseous lesions in the lumbar vertebral bodies and visualize d sacrum. Modic type 1 sub endplate marrow edema changes are seen at L3-4 level. See below PET With respect to the individual levels... T12-L1: Unremarkable L1-2: Normal disc height and signal. No disc herniation nor central canal stenosis.No foraminal steno sis L2-3: Preserved disc height. Mild decreased disc hydration signal. Broad annular bulging noted with superimposed accentuation of annular bulging lateral left and extending into the floor of the exiti ng left neural foramen.Central canal dimensions are lower normal.Exiting right neural foramen unremar kable. Annular bulging is seen in the floor of the left exiting neural foramen although there does n ot appear to be prominent foraminal stenosis at this level. Minimal facet joint degenerative changes seen at this level. L3-4: This level exhibits asymmetric disc space narrowing which is more severe on the right side wher e there also lateral right osteophytes and Modic type 1 sub endplate marrow edema changes at this lev el. There is mild central spinal canal stenosis due to the annular bulging and short AP dimensions o f the pedicles. No significant foraminal stenosis on the left side. However, on the right side ther e is mild-moderate foraminal stenosis due to the asymmetric disc height loss at this level and mild d egenerative facet degenerative changes. L4-5: This level exhibits chronic uniform advanced disc space narrowing. No edema in the sub endplat e marrow. Posterior annular bulging, more so right of center. Mild central canal stenosis. There i s mild bilateral vertical foraminal stenosis due to disc height loss and mild annular bulging at the level of the floor of the exiting neural foramina bilaterally. Right facet joint unremarkable. Mild degenerative changes in the left facet joint. L5-S1: This level exhibits relatively preserved disc height and signal. However, there is a central- left paracentral disc protrusion at this level. This extends posteriorly 3 millimeters and is approx imately 1 cm wide and indents the anterior thecal sac. Central canal dimensions are lower normal. T here is no foraminal stenosis on the right side at this level. Mild foraminal stenosis on the left s penny at this level due to asymmetric left facet arthropathy. There is no or thrombus in the right fac et at this level. Soft tissues: Left kidney cysts noted. IMPRESSION: 1. Multilevel disc level findings as described individually above. Mild central canal stenosis at L3 -4 and L4-5 levels.. Asymmetric foraminal stenosis as described above DATA REPOSITORY:
== END ==
PROVIDERS: PCP Physician Assistant Medical; Visit Provider Physician Assistant Medical
DX: M48.061 Spinal stenosis, lumbar region without neurogenic claudication (principal)
CPT/HCPCS: 72148

== ENCOUNTER 2021-11-01 18:04 | Outpatient (REF) | payer BC, SELFPAY ==
[2021-11-01 12:58] LABS: C Diff PCR Negative (Negative)
[2021-11-02 11:14] LABS: Campylobacter PCR Negative (Negative); Salmonella PCR Negative (Negative); Shiga Toxin PCR Negative (Negative); Shigella/Enteroinvasive Ecoli Negative (Negative)
== END 2021-11-01 18:05 | disposition home or self-care (01) ==
LOC: NCHCN 18:04
PROVIDERS: PCP Physician Assistant Medical; Visit Provider Internal Medicine
DX: R19.7 Diarrhea, unspecified (principal)
CPT/HCPCS: 87493; 87505

== ENCOUNTER 2022-02-03 02:13 | Outpatient (CLI) | payer BC, SELFPAY ==
[2022-02-03 07:43] LABS: Abs Immature Grans 0.02 10^3/uL (0.0-0.06); Absolute Basophil Count 0.03 10^3/uL (0.0-0.2); Absolute Eosinophil Count 0.26 10^3/uL (0.0-0.7); Absolute Lymphocyte Count 1.28 10^3/uL (1.2-3.4); Absolute Neutrophil Count 4.22 10^3/uL (1.2-6.7); Basophils % 0.5; Eosinophils % 3.9; HCT 40.8 % (36.0-46.0); HGB 14.1 g/dL (11.2-15.7); Immature Grans % 0.3; Lymphocytes % 19.4; MCH 31.5 pg (27.0-33.0); MCHC 34.6 % (32.0-36.0); MCV 91 fL (80-95); MPV 10.2 fL (8.0-11.0); Monocytes % 12.1; Neutrophils % 63.8; Platelet Count 283 10^3/uL (130-400); RBC 4.48 10^6/uL (3.93-5.22); RDW 12.3 % (11.7-14.6); RDW-SD 40.7 fL; WBC 6.61 10^3/uL (4.4-10.8)
[2022-02-03 08:16] LABS: Hemoglobin A1C 5.7 % (<5.7)
[2022-02-03 08:31] LABS: ALT 26 U/L (14-59); AST 21 U/L (15-37); Albumin 4.4 g/dL (3.4-5.0); Alkaline Phosphatase 74 U/L (46-116); Anion Gap 8.9 mmol/L (3-11); BUN 14 mg/dL (7-18); CO2 30.1 mmol/L (21.0-32.0); CREATININE 0.7 mg/dL (0.55-1.02); Calcium 9.2 mg/dL (8.5-10.1); Calculated LDL 108 mg/dL (<100); Chloride 103 mmol/L (98-107); Cholesterol 197 mg/dL (<200); Estimated GFR 95.32 (mL/min/1.73m2); Glucose 103 mg/dL (74-106); HDL Cholesterol 69 mg/dL (40-60); Potassium 3.6 mmol/L (3.5-5.1); Sodium 142 mmol/L (136-145); TSH (W/Ref FT4) 0.97 uIU/mL (0.36-3.74); Total Protein 8.2 g/dL (6.4-8.2); Triglyceride 101 mg/dL (<150)
== END 2022-02-03 02:14 | disposition home or self-care (01) ==
LOC: LBO 02:13
PROVIDERS: PCP Physician Assistant Medical; Visit Provider Physician Assistant Medical
DX: R00.2 Palpitations (principal); R73.03 Prediabetes; E78.70 Disorder of bile acid and cholesterol metabolism, unspecified
CPT/HCPCS: 36415; 80053; 80061; 83036; 84443; 85025

== ENCOUNTER 2022-02-03 09:40 | Outpatient (CLI) | payer BC, SELFPAY | END 2022-02-03 09:41 | disposition home or self-care (01) | LOC: CARDOPNVT 09:40 | PROVIDERS: PCP Physician Assistant Medical; Visit Provider Physician Assistant Medical | DX: R00.2 Palpitations (principal) | CPT/HCPCS: 93246 ==

== ENCOUNTER 2022-03-03 07:46 | Outpatient (CLI) | payer BC, SELFPAY ==
--- NOTE | 2022-03-03 08:44 | W.CARDEVENT ---
Date of service: 03/03/22 Time of Service: 08:45 Cardiac Event Recorder Referring Provider:: Marycruz Quevedo Indications:: Palpitations Cardiac Event Note: This is a 14-day cardiac event monitor ordered for palpitations Rhythm throughout was sinus with an average heart rate of 60. Minimum was 41, maximum 125 There were very rare isolated atrial and ventricular ectopic beats A total of 4 self-limited atrial runs occurred. The longest of these was 9 beats in duration There was no atrial fibrillation, no high-grade AV block, no pauses greater than 3 seconds Patient symptoms were reported all of which corresponded to sinus rhythm with rates ranging between 58 and 70
== END 2022-03-03 07:47 | disposition home or self-care (01) ==
LOC: CARDOPNVT 07:46
PROVIDERS: PCP Physician Assistant Medical; Visit Provider Internal Medicine Cardiovascular Disease
DX: I49.1 Atrial premature depolarization (principal)

== ENCOUNTER 2022-06-10 01:35 | Outpatient (CLI) | payer BC, SELFPAY ==
[2022-06-10 07:33] LABS: Abs Immature Grans 0.02 10^3/uL (0.0-0.06); Absolute Basophil Count 0.06 10^3/uL (0.0-0.2); Absolute Eosinophil Count 0.25 10^3/uL (0.0-0.7); Absolute Monocyte Count 0.81 10^3/uL (0.1-0.8); Absolute Neutrophil Count 4.19 10^3/uL (1.2-6.7); Basophils % 0.9; Eosinophils % 3.8; HCT 40.8 % (36.0-46.0); HGB 14.5 g/dL (11.2-15.7); Immature Grans % 0.3; Lymphocytes % 19.6; MCH 32.6 pg (27.0-33.0); MCHC 35.5 % (32.0-36.0); MCV 92 fL (80-95); MPV 9.8 fL (8.0-11.0); Monocytes % 12.2; Neutrophils % 63.2; Platelet Count 257 10^3/uL (130-400); RBC 4.45 10^6/uL (3.93-5.22); RDW 12.1 % (11.7-14.6); RDW-SD 40.5 fL; WBC 6.63 10^3/uL (4.4-10.8)
[2022-06-10 07:53] LABS: Hemoglobin A1C 6.2 % (<5.7)
[2022-06-10 08:02] LABS: Calculated LDL 117 mg/dL (<100); Cholesterol 213 mg/dL (<200); HDL Cholesterol 57 mg/dL (40-60); Triglyceride 195 mg/dL (<150)
[2022-06-10 08:21] LABS: Vitamin D 25 Total 46.8 ng/mL (30-100)
[2022-06-10 08:35] LABS: ALT 38 U/L (14-59); AST 20 U/L (15-37); Albumin 4.1 g/dL (3.4-5.0); Alkaline Phosphatase 75 U/L (46-116); Anion Gap 9.4 mmol/L (3-11); BUN 16 mg/dL (7-18); Bilirubin, Total 0.8 mg/dL (0.2-1.0); CO2 27.6 mmol/L (21.0-32.0); CREATININE 0.9 mg/dL (0.55-1.02); Calcium 9.3 mg/dL (8.5-10.1); Chloride 104 mmol/L (98-107); Estimated GFR 70.07 (mL/min/1.73m2); Ferritin 253 ng/mL (8-252); Glucose 124 mg/dL (74-106); Magnesium 1.8 mg/dL (1.8-2.4); Potassium 3.8 mmol/L (3.5-5.1); Sodium 141 mmol/L (136-145); TSH 1.18 uIU/mL (0.36-3.74); Total Protein 7.9 g/dL (6.4-8.2); Vitamin B12 839 pg/mL (193-986)
[2022-06-10 08:36] LABS: Folate > 20.0 ng/mL (8.6-20.0)
[2022-06-10 09:09] LABS: FREE T4 0.97 ng/dL (0.76-1.46)
[2022-06-10 09:56] LABS: Iron 88 ug/dL (50-170); Total Iron Binding Capacity 357 ug/dL (250-450); Transferrin Sat 25 % (15-50)
[2022-06-12 13:21] LABS: Lipoprotein (a) <7 nmol/L (<75)
[2022-06-13 09:03] LABS: Homocysteine 11.7 umol/L (5.0-13.9)
[2022-06-16 19:18] LABS: Histamine, Whole Blood 1273 nmol/L (180-1800)
== END 2022-06-10 01:36 | disposition home or self-care (01) ==
LOC: LBO 01:36
PROVIDERS: PCP Physician Assistant Medical; Visit Provider Naturopath
DX: R51.9 Headache, unspecified (principal); R53.83 Other fatigue; E78.5 Hyperlipidemia, unspecified; E55.9 Vitamin D deficiency, unspecified
CPT/HCPCS: 36415; 80053; 80061; 82306; 83090; 83695; 82607; 82728; 82746; 83036; 83088; 83540; 83550; 83735; 84439; 84443; 85025

== ENCOUNTER 2022-10-06 09:14 | Observation (INO) | payer BC, SELFPAY ==
[2022-10-06] VITALS (32 sets, daily range): BP systolic 112–170; BP diastolic 64–94; PULSE 49–67; RESP 9–22; TEMP 36.3–36.9; O2SAT 93–99
--- NOTE | 2022-10-06 09:15 | RT.EKG_ITS ---
APPROVED REPORT Exam: Resting ECG Reason for Exam: syncopal episodes Patient Location: E HR:55 bpm ECG Measurements Heart Rate 55 AXIS CO 173 P 34 QRSd 91 QRS 10 QT 464 T 41 QTc 446 Conclusion Sinus bradycardia...rate< 60 Consider left ventricular hypertrophy...(R aVL+S V3) >2.20mV
[2022-10-06 10:04] LABS: Abs Immature Grans 0.02 10^3/uL (0.0-0.06); Absolute Basophil Count 0.05 10^3/uL (0.0-0.2); Absolute Eosinophil Count 0.22 10^3/uL (0.0-0.7); Absolute Lymphocyte Count 1.02 10^3/uL (1.2-3.4); Absolute Monocyte Count 0.63 10^3/uL (0.1-0.8); Absolute Neutrophil Count 4.22 10^3/uL (1.2-6.7); Basophils % 0.8; Eosinophils % 3.6; HCT 43.4 % (36.0-46.0); HGB 15.2 g/dL (11.2-15.7); Immature Grans % 0.3; Lymphocytes % 16.6; MCH 32.1 pg (27.0-33.0); MCV 92 fL (80-95); MPV 10.6 fL (8.0-11.0); Monocytes % 10.2; Neutrophils % 68.5; Platelet Count 256 10^3/uL (130-400); RBC 4.73 10^6/uL (3.93-5.22); RDW-SD 40.5 fL; WBC 6.16 10^3/uL (4.4-10.8)
[2022-10-06 10:05] LABS: Bilirubin Negative (Negative); Blood Negative (Negative); Clarity Clear (Clear); Glucose Negative (Negative); Ketones Negative (Negative); Leukocyte Esterase Negative (Negative); Nitrite Negative (Negative); Specific Gravity 1.015 (1.005-1.025); Urobilinogen 0.2 mg/dL (Up to 0.2)
--- NOTE | 2022-10-06 10:15 | DI.CT_ITS ---
Exam(s) CT HEAD WO EXAM: CT HEAD WO CLINICAL HISTORY: syncope. TECHNIQUE: Imaging Protocol: Axial computed tomography images with coronal and sagittal reformatted images were created and reviewed COMPARISON: No exams were available for comparison FINDINGS: There are no skull fractures. There is no fluid in the visualized paranasal sinuses. There is no evidence of intracranial hemorrhage, mass effect, or shift of midline structures. There are no extra-axial fluid collections. The ventricles are not enlarged or shifted and there is no blo od within the ventricular system nor within the basal cisterns. IMPRESSION: No acute intracranial findings on this noninfused CT scan of the brain. Called by myself to ER. RADIATION DOSE DELIVERED: 676.67mGy.cm Total DLP DATA REPOSITORY: All CT scans at this facility are submitted to the National Radiology Data Registry (NRDR) Dose Index Registry (DIR) with the [employer] ([employer]). RADIATION OPTIMIZATION: All CT scans at this facility use at least one of these dose optimization te chniques: automated exposure control; mA and/or kV adjustment per patient size (includes targeted exa ms where dose is matched to clinical indication); or iterative reconstruction.
--- NOTE | 2022-10-06 10:15 | DI.RAD_ITS ---
Exam(s) XR CHEST 2V PA LATERAL EXAM: XR CHEST 2V PA LATERAL CLINICAL HISTORY: syncope. TECHNIQUE: 2D digital imaging was performed. COMPARISON: No exams were available for comparison FINDINGS: 2 views: Heart size is normal. The mediastinum is not widened. Lungs are clear. No infiltrates nor pleural effusions. IMPRESSION: No acute pulmonary findings. DATA REPOSITORY: RADIATION DOSE DELIVERED:
--- NOTE | 2022-10-06 10:20 | ED.GENADUL_ITS ---
Discharge Plan Disposition Patient Disposition: Admit to [facility] Condition: Serious Discharge Details Clinical Impression: Syncope, Hypokalemia Admit Date/Time: 10/06/22 12:01 Admit Provider: David Holloway Attending Provider: David Hloloway Primary Care Provider: Marycruz Quevedo ED Provider: Lonny Chung Discharge Data Discharge Date/Time-TO BE ENTERED AT DEPARTURE: 10/06/22 13:15 Medical Decision Making 1025??67-year-old female with history of hyperlipidemia, hypertension, here after syncopal episode today with 2 prior episodes of severe lightheadedness over the past couple days that seem to occur with mildly exertional activities. Patient is hypertensive. No other concerning findings on examination. EKG to assess for arrhythmia was reviewed and interpreted by me: Sinus bradycardia 55 bpm. Concern for LVH. I suspect cardiogenic etiology. Patient will require hospitalization for telemetry if work-up nondiagnostic here in the emergency department. I will obtain screening labs to assess for electrolyte abnormalities and ACS. Low suspicion for neurogenic etiology but will obtain CT of the head. 1155 --chest x-ray reviewed and interpreted by me: No acute cardiopulmonary disease noted. CT head interpreted by radiology as negative. Labs reviewed and mild hypokalemia noted. I will give potassium chloride orally. I called and spoke with hospitalist, discussed ED presentation course, he will admit the patient for cardiac observation. Lab Data Lab results reviewed: Yes I reviewed the patient's lab results. Labs: Laboratory Tests Range/Units 10/06/22 10/06/22 10/06/22 09:40 09:40 09:50 WBC (4.4-10.8) 10^3/uL 6.16 RBC (3.93-5.22) 10^6/uL 4.73 Hgb (11.2-15.7) g/dL 15.2 Hct (36.0-46.0) % 43.4 MCV (80-95) fL 92 MCH (27.0-33.0) pg 32.1 MCHC (32.0-36.0) % 35.0 RDW (11.7-14.6) % 12.0 Plt Count (130-400) 10^3/uL 256 MPV (8.0-11.0) fL 10.6 Immature Gran % 0.3 Neutrophils % 68.5 Lymphocytes % 16.6 Monocytes % 10.2 Eosinophils % 3.6 Basophils % 0.8 Nucleated RBC % (0.0-0.3) % 0.0 Absolute Neutrophils (1.2-6.7) 10^3/uL 4.22 Absolute Lymphocytes (1.2-3.4) 10^3/uL 1.02 L Absolute Monocytes (0.1-0.8) 10^3/uL 0.63 Absolute Eosinophils (0.0-0.7) 10^3/uL 0.22 Absolute Basophils (0.0-0.2) 10^3/uL 0.05 Sodium (136-145) mmol/L 137 Potassium (3.5-5.1) mmol/L 3.4 L Chloride (98-107) mmol/L 101 Carbon Dioxide (21.0-32.0) mmol/L 27.7 Anion Gap (3-11) mmol/L 8.3 BUN (7-18) mg/dL 14 Creatinine (0.55-1.02) mg/dL 0.8 Est GFR (CKD-EPI 2020) (mL/min/1.73m2) 80.71 Glucose (74-106) mg/dL 128 H Calcium (8.5-10.1) mg/dL 9.2 Magnesium (1.8-2.4) mg/dL 1.9 Total Bilirubin (0.2-1.0) mg/dL 0.5 AST (15-37) U/L 21 ALT (14-59) U/L 28 Alkaline Phosphatase (46-116) U/L 83 Troponin I (<or=60) ng/L < 50 Total Protein (6.4-8.2) g/dL 8.2 Albumin (3.4-5.0) g/dL 4.5 TSH (0.36-3.74) uIU/mL 0.87 Urine Color (Yellow) Yellow Urine Clarity (Clear) Clear Urine pH (5-8) 7.0 Ur Specific [place] (1.005-1.025) 1.015 Urine Protein (Negative) mg/dL Negative Urine Ketones (Negative) mg/dL Negative Urine Blood (Negative) Negative Urine Nitrite (Negative) Negative Urine Bilirubin (Negative) Negative Urine Urobilinogen (Up to 0.2) mg/dL 0.2 Ur Leukocyte Esterase (Negative) Negative Urine Glucose (Negative) mg/dL Negative HPI General Mode of arrival: ambulatory . Date/Time Provider Initiated Documentation: 10/06/22 09:41 . Limitations to Documentation: no limitations . Information obtained by: patient . HPI Narrative: 67-year-old female with history of hypertension, hyperlipidemia, partial colectomy for early colon cancer, here today with chief complaint of dizziness. Patient notes she had 3 discrete episodes of severe dizziness that started 2 days ago. Patient notes the first episode occurred when she was walking briskly. She notes she suddenly felt dizzy like she was going to pass out and had changes to her vision. She had to stabilize herself against a motor vehicle and symptoms resolved after a few minutes. She went about her day without symptoms. Yesterday she had another similar episode after hurrying upstairs at work. Again symptoms came on suddenly and lasted for a few minutes improving with rest. Today she was again walking briskly on her way to work and had a severe episode where she did lose consciousness and regained consciousness on the ground. This occurred about 8 AM. Patient denies preceding symptoms or chest pain or shortness of breath. She is no abdominal pain. No recent fever or chills. Only atypical symptoms over the past few weeks she notes bilateral sharp pain in the soles of her feet that occurs at night. She has no calf pain or leg swelling. Related Data Home Medications Medication Instructions Recorded Confirmed sertraline 100 mg tablet 100 mg PO HS 04/28/17 10/06/22 cholecalciferol (vitamin D3) 25 1,000 unit PO DAILY 06/13/17 10/06/22 mcg (1,000 unit) capsule ibuprofen 200 mg capsule 200 mg PO Q4H PRN 06/13/17 10/06/22 amlodipine 5 mg tablet 5 mg PO HS 02/28/18 10/06/22 atorvastatin 10 mg tablet 10 mg PO DAILY 10/06/22 10/06/22 potassium chloride 20 mEq 20 meq PO DAILY #14 tabs 10/07/22 tablet,extended release Previous Rx's Medication Instructions Recorded potassium chloride 20 mEq 20 meq PO DAILY #14 tabs 10/07/22 tablet,extended release Allergies Allergy/AdvReac Type Severity Reaction Status Date / Time Penicillins Allergy Unknown Verified 10/06/22 09:29 lisinopril AdvReac cough Verified 10/06/22 09:29 General Stated Complaint: [id number] ABELARDO: 3 Review of Systems Constitutional Constitutional: Denies fever(s) Cardiovascular Cardiovascular: Denies chest pain and Denies dyspnea Respiratory Respiratory: Denies dyspnea PFSH All Active Problems (Updated 10/07/22 @ 11:33 by Anna Kemp NP) Complete heart block (Acute) Hypertension (Chronic) Syncope (Chronic) Hypokalemia (Acute) Normal colonoscopy (Acute) Hx of colonic polyps (Acute) Medical History Acquired auditory processing disorder Anxiety Basal cell carcinoma, face Benign skin lesion of nose Cognitive changes Depression High cholesterol Hypertension Low back pain Tubular adenoma Tubulovillous adenoma of rectum (~11/2017) Unresolved grief Surgical History Arthroplasty of knee (01/14/10) RIGHT Arthroscopy, Shoulder (05/12/09) RIGHT Colonoscopy - IV Sedation Colonoscopy - MAC (08/14/17) History of left knee replacement Hysterectomy, Laproscopic (01/27/04) S/P colon resection for recurring tubular adenoma ([facility] [place]- Dr. Stevie Tolliver) Sigmoidoscopy exam (~02/2018) Family History Other Alzheimer's dementia CHF (congestive heart failure) Cardiac arrest Lung cancer Social History Smoking/Tobacco Use Status: Never Smoking risk assessment performed?: Yes Alcohol Intake: current Alcohol Intake frequency: holidays/special occasions only Alcohol type: beer Drug use: Never Substance use type: does not use Housing: house Do you feel safe at home: Yes Do you feel safe in your relationship?: Yes Exam Const General: cooperative and no acute distress HENMT Mouth: moist mucous membranes Eyes Conjunctivae: normal conjunctivae Sclera: normal sclerae EOM: EOM intact bilaterally Resp Auscultation: clear to auscultation bilaterally, no rales, no rhonchi and no wheezes Cardio Rate: regular rate and not tachycardic Rhythm: regular rhythm GI Palpation: soft, not firm, no guarding, no masses, not rigid and nontender Skin General skin exam: no rashes or lesions noted Neuro General: patient alert, patient awake, patient oriented x3 and tone normal Cranial Nerves: CN's II-XI intact bilaterally Cognition: normal cognition Speech: speech normal Motor: strength 5/5 throughout Sensory Exam: no sensory deficits noted Extrem General: no calf tenderness and no edema Psych Appearance: grossly normal Mental Status: mental status grossly normal Speech and Movement: speech and movement normal Course Vital Signs Vital signs: Vital Signs Temperature 36.6 C 10/06/22 09:23 Pulse 61 10/06/22 09:23 Respiratory Rate 13 10/06/22 09:23 Blood Pressure 160/90 H 10/06/22 09:23 Pulse Oximetry 97 10/06/22 09:23 Temperature 36.6 C 10/06/22 09:23 Temperature Source Oral 10/06/22 09:23 Pulse 61 10/06/22 09:23 Respiratory Rate 13 10/06/22 09:23 Respiratory Effort Non-Labored, Short of Breath 10/06/22 09:28 Blood Pressure 160/90 H 10/06/22 09:23 Blood Pressure Position Sitting 10/06/22 09:23 Pulse Oximetry 97 10/06/22 09:23 Oxygen Delivery Method Room Air 10/06/22 09:23 Oxygen Flow Rate 0 10/06/22 09:23 Pain Level 0 10/06/22 09:23 Lab/Test Results Lab/Test Results: Laboratory Tests Range/Units 10/06/22 10/06/22 09:40 09:50 WBC (4.4-10.8) 10^3/uL 6.16 RBC (3.93-5.22) 10^6/uL 4.73 Hgb (11.2-15.7) g/dL 15.2 Hct (36.0-46.0) % 43.4 MCV (80-95) fL 92 MCH (27.0-33.0) pg 32.1 MCHC (32.0-36.0) % 35.0 RDW (11.7-14.6) % 12.0 Plt Count (130-400) 10^3/uL 256 MPV (8.0-11.0) fL 10.6 Immature Gran % 0.3 Neutrophils % 68.5 Lymphocytes % 16.6 Monocytes % 10.2 Eosinophils % 3.6 Basophils % 0.8 Nucleated RBC % (0.0-0.3) % 0.0 Absolute Neutrophils (1.2-6.7) 10^3/uL 4.22 Absolute Lymphocytes (1.2-3.4) 10^3/uL 1.02 L Absolute Monocytes (0.1-0.8) 10^3/uL 0.63 Absolute Eosinophils (0.0-0.7) 10^3/uL 0.22 Absolute Basophils (0.0-0.2) 10^3/uL 0.05 Urine Color (Yellow) Yellow Urine Clarity (Clear) Clear Urine pH (5-8) 7.0 Ur Specific [place] (1.005-1.025) 1.015 Urine Protein (Negative) mg/dL Negative Urine Ketones (Negative) mg/dL Negative Urine Blood (Negative) Negative Urine Nitrite (Negative) Negative Urine Bilirubin (Negative) Negative Urine Urobilinogen (Up to 0.2) mg/dL 0.2 Ur Leukocyte Esterase (Negative) Negative Urine Glucose (Negative) mg/dL Negative
[2022-10-06 10:30] LABS: ALT 28 U/L (14-59); AST 21 U/L (15-37); Albumin 4.5 g/dL (3.4-5.0); Alkaline Phosphatase 83 U/L (46-116); Anion Gap 8.3 mmol/L (3-11); BUN 14 mg/dL (7-18); Bilirubin, Total 0.5 mg/dL (0.2-1.0); CO2 27.7 mmol/L (21.0-32.0); CREATININE 0.8 mg/dL (0.55-1.02); Calcium 9.2 mg/dL (8.5-10.1); Chloride 101 mmol/L (98-107); Estimated GFR 80.71 (mL/min/1.73m2); Glucose 128 mg/dL (74-106); Magnesium 1.9 mg/dL (1.8-2.4); Potassium 3.4 mmol/L (3.5-5.1); Sodium 137 mmol/L (136-145); TSH (W/Ref FT4) 0.87 uIU/mL (0.36-3.74); Total Protein 8.2 g/dL (6.4-8.2); Troponin I < 50 ng/L (<or=60)
[2022-10-06] MEDS: Potassium Chloride 20 MEQ TABCR PO ×3 (11:13→17:08)
--- NOTE | 2022-10-06 12:18 | DI.US_ITS ---
APPROVED REPORT EXAM: Comprehensive 2D, Doppler, and color-flow Echocardiogram Patient Location: ER Room/Bed: 1 [employer] Sales Broker: Mahad Stacy RDCS Indications: Syncope, CHF, HTN, bradycardia Other Information Study Quality: Good Conclusion Mild concentric left ventricular hypertrophy. Ejection fraction is 60 to 65%. Wall motion is normal Normal right ventricular size and systolic function Both atria are normal in size There is no structural or hemodynamically significant valvular disease Estimated right ventricular systolic pressure is 17 mmHg Dilated ascending aorta 3.41 cm Wall motion Left Ventricle The left ventricle is normal size. The left ventricular systolic function is normal. The left ventric ular ejection fraction is within the normal range. Borderline concentric left ventricular hypertrophy . There is normal LV segmental wall motion. There is no ventricular septal defect visualized. LVEF is 60-65%. Right Ventricle The right ventricle is normal size. The right ventricular systolic function is normal. The RVSP is 17 .2 mmHg. Atria The left atrium size is normal. The right atrium size is normal. The interatrial septum is intact wit h no evidence for an atrial septal defect. Aortic Valve The aortic valve is normal in structure. Aortic valve is trileaflet. There is no aortic valvular sten osis. Mitral Valve The mitral valve is normal in structure. No evidence of mitral valve stenosis. Trace mitral regurgita tion. Tricuspid Valve The tricuspid valve is normal in structure. There is no tricuspid valve stenosis. Trace tricuspid reg urgitation. Pulmonic Valve The pulmonary valve is normal in structure. There is no pulmonic valvular stenosis. Trace pulmonic re gurgitation. Great Vessels The aortic root is normal in size. The ascending aorta is mildly dilated. Aortic arch is normal in ca liber. IVC is normal in size and collapses >50% with inspiration. Pericardium There is no pericardial effusion. 2D Dimensions IVSD d PLAX 1.17 cm F: 0.6-1.0 LVPW d PLAX 1.15 cm F: 0.6 - 1.0 LVID d PLAX 3.71 cm F: 3.8 - 5.2 LVDs 2.45 cm F: 2.2 - 3.5 Ao Root d 2.94 cm F: 2.7 - 3.3 RA Area A4C 9.39 cm2 Ao Asc Diam d 3.41 cm F: 2.3 - 3.1 LV EF Teichholz 63.3 % FS 33.60 % M-Mode TAPSE 2.78 cm (M/F) >1.7 LV Diastology MV E' medial 0.085 (>0.07 m/s) E/A Ratio 0.8 LV E/e MED 9.89 (<14) MV E Vmax 0.84 (0.4-1.3 m/s) MV E' lateral 0.044 (>0.1 m/s) MV A Vmax 1.05 (0.4-1.3 m/s) LV E/e LAT 19.08 (<14) MV E/E' medial 9.89 MV E/E' lateral 19.08 MV (E/E' average) 13.03 Aortic Valve LVOT Vmax 1.08 m/s AoV Area Vmax 2.06 cm2 LVOT Peak Grad 4.6 mmHg LVOT Mean Grad 2.4 mmHg LVOT Diam s 1.85 cm AoV Vmax 1.48 m/s Velocity Ratio 0.73 AoV Peak Grad 8.7 mmHg LVOT SV 69.88 mL AoV Mean Grad 4.6 mmHg AoV Area VTI 1.97 cm2 Mitral Valve MV DT 226 (160-240 msec) Pulmonary Valve PV Mean Grad 1.7 mmHg RVOT Peak Gr. 2.06 mmHg RVOT Mean Gr. 1.05 mmHg RVOT VTI 0.179 m RVOT Vmax 0.72 m/s Tricuspid Valve TR Peak Grad 14.1 mmHg TR Vmax 1.88 m/s RA Pressure 3.00 mmHg RVSP (TR) 17.2 mmHg
--- NOTE | 2022-10-06 13:13 | HPE_ITS ---
Date of service: 10/06/22 Time of Service: 13:13 Assessment and Plan Assessment and plan (1) Syncope: Status: Chronic Assessment and plan: ED work up unrevealing, need to assess for orthostatic hypotension which was negative, will refer to observation on telemetry. cycle troponins and check echocardi ogram. plan to discharge home on online activist tomorrow if remains stable. (2) Hypokalemia: Status: Acute Assessment and plan: replete and follow magnesium level 1.9 (3) Hypertension: Status: Chronic Assessment and plan: blood pressure controlled. no orthostasis. continue to monitor and continue amlodipine at home dose. 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 She denies any similar history she states the 2 previous episodes she did feel like she was going to blackout and was able to hold onto something and put her head down and never actually passed out but today she stated while walking very fast she all of a sudden found herself with the face full of gravel. She states there was no injury from her fall. She denied any chest pain fever or recent illness there is no nausea no vomiting there was no evidence of seizure-like activity did not bite her tongue no urine or fecal incontinence. She states that at rest she has not had any similar symptoms at all and these have occurred with activity only. Her work-up in the emergency department was unrevealing and request made to admit to observation on telemetry for further evaluation. 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 Sigmoidoscopy exam (~02/2018) Family History Other Alzheimer's dementia CHF (congestive heart failure) Cardiac arrest Lung cancer Social History Smoking/Tobacco Use Status: Never Smoking risk assessment performed?: Yes Alcohol Intake: current Alcohol Intake frequency: holidays/special occasions only Alcohol type: beer Drug use: Never Substance use type: does not use Housing: house Do you feel safe at home: Yes Do you feel safe in your relationship?: Yes Meds Allergies and Home Medications Allergies Allergy/AdvReac Type Severity Reaction Status Date / Time Penicillins Allergy Unknown Verified 10/06/22 09:29 lisinopril AdvReac cough Verified 10/06/22 09:29 Home Medications Medication Instructions Recorded Confirmed Type sertraline 100 mg tablet 100 mg PO HS 04/28/17 10/06/22 History cholecalciferol (vitamin D3) 25 1,000 unit PO DAILY 06/13/17 10/06/22 History mcg (1,000 unit) capsule ibuprofen 200 mg capsule 200 mg PO Q4H PRN 06/13/17 10/06/22 History amlodipine 5 mg tablet 5 mg PO HS 02/28/18 10/06/22 History atorvastatin 10 mg tablet 10 mg PO DAILY 10/06/22 10/06/22 History Exam Const General: cooperative, healthy appearing, comfortable and no acute distress Nutritional Appearance: average body habitus Orientation: alert, awake and oriented x3 HENMT Head: normal to inspection, normocephalic and atraumatic Mouth: oral mucosae normal Chest Chest: normal inspection of the chest Resp Effort & Inspection: normal respiratory effort Auscultation: clear to auscultation bilaterally Cardio Rate: regular rate Rhythm: regular rhythm GI Inspection: normal to inspection Palpation: soft Auscultation: normal bowel sounds Skin General skin exam: no rashes or lesions noted Neuro General: patient alert, patient awake and patient oriented x3 Cranial Nerves: CN's II-XI intact bilaterally Extrem General: normal to inspection, full ROM and no pedal edema Results Labs 10/06/22 09:40 10/06/22 09:40 Labs: Laboratory Results - last 24 hr 10/06/22 10/06/22 10/06/22 09:40 09:40 09:50 WBC 6.16 RBC 4.73 Hgb 15.2 Hct 43.4 MCV 92 MCH 32.1 MCHC 35.0 RDW 12.0 Plt Count 256 MPV 10.6 Immature Gran % 0.3 Neutrophils % 68.5 Lymphocytes % 16.6 Monocytes % 10.2 Eosinophils % 3.6 Basophils % 0.8 Nucleated RBC % 0.0 Absolute Neutrophils 4.22 Absolute Lymphocytes 1.02 L Absolute Monocytes 0.63 Absolute Eosinophils 0.22 Absolute Basophils 0.05 Sodium 137 Potassium 3.4 L Chloride 101 Carbon Dioxide 27.7 Anion Gap 8.3 BUN 14 Creatinine 0.8 Est GFR (CKD-EPI 2020) 80.71 Glucose 128 H Calcium 9.2 Magnesium 1.9 Total Bilirubin 0.5 AST 21 ALT 28 Alkaline Phosphatase 83 Troponin I < 50 Total Protein 8.2 Albumin 4.5 TSH 0.87 Urine Color Yellow Urine Clarity Clear Urine pH 7.0 Ur Specific [place] 1.015 Urine Protein Negative Urine Ketones Negative Urine Blood Negative Urine Nitrite Negative Urine Bilirubin Negative Urine Urobilinogen 0.2 Ur Leukocyte Esterase Negative Urine Glucose Negative Last Vital Signs Temp 36.6 C 10/06/22 09:23 Pulse 54 L 10/06/22 12:51 Resp 15 10/06/22 12:51 BP 145/94 H 10/06/22 12:51 Pulse Ox 96 10/06/22 12:51 Time Spent Time spent with Patient: <40 minutes Time was spent: preparing to see the patient(eg.review tests), obtaining and/or reviewing separately otained hiistory, ordering medications,tests, procedures and indepentently interpreting results
[2022-10-06 13:35] LABS: Troponin I < 50 ng/L (<or=60)
[2022-10-06] MEDS: amLODIPine 5 MG TAB PO (22:02)
[2022-10-06] MEDS: Ibuprofen 200 MG TAB PO (22:02)
[2022-10-07] VITALS (45 sets, daily range): BP systolic 111–169; BP diastolic 53–128; PULSE 31–101; RESP 9–22; TEMP 36–36.6; O2SAT 94–97
[2022-10-07 07:02] LABS: Abs Immature Grans 0.01 10^3/uL (0.0-0.06); Absolute Basophil Count 0.06 10^3/uL (0.0-0.2); Absolute Eosinophil Count 0.26 10^3/uL (0.0-0.7); Absolute Lymphocyte Count 1.37 10^3/uL (1.2-3.4); Absolute Monocyte Count 0.72 10^3/uL (0.1-0.8); Absolute Neutrophil Count 2.93 10^3/uL (1.2-6.7); Basophils % 1.1; Eosinophils % 4.9; HCT 39.8 % (36.0-46.0); HGB 14.1 g/dL (11.2-15.7); Immature Grans % 0.2; Lymphocytes % 25.6; MCH 32.6 pg (27.0-33.0); MCHC 35.4 % (32.0-36.0); MCV 92 fL (80-95); MPV 10.7 fL (8.0-11.0); Monocytes % 13.5; Neutrophils % 54.7; Platelet Count 265 10^3/uL (130-400); RBC 4.33 10^6/uL (3.93-5.22); RDW 12.1 % (11.7-14.6); RDW-SD 40.9 fL; WBC 5.35 10^3/uL (4.4-10.8)
[2022-10-07 07:22] LABS: Anion Gap 9.3 mmol/L (3-11); BUN 19 mg/dL (7-18); CO2 25.7 mmol/L (21.0-32.0); CREATININE 0.8 mg/dL (0.55-1.02); Calcium 9.2 mg/dL (8.5-10.1); Chloride 105 mmol/L (98-107); Estimated GFR 80.71 (mL/min/1.73m2); Glucose 112 mg/dL (74-106); Sodium 140 mmol/L (136-145)
[2022-10-07] MEDS: Potassium Chloride 20 MEQ TABCR PO (07:47)
[2022-10-07] MEDS: Atorvastatin 10 MG TAB PO (07:47)
[2022-10-07] MEDS: Cholecalciferol (Vitamin D3) 1,000 UNIT TAB 1000 UNITS PO (07:48)
[2022-10-07] MEDS: Normal Saline Flush 10 ML SYR IVP ×2 (07:53→13:04)
--- NOTE | 2022-10-07 08:59 | W.PM.DS.N ---
Date of service: 10/07/22 Time of Service: 08:59 DS: Diagnosis Discharge Diagnosis (1) Syncope: Status: Chronic (2) Hypokalemia: Status: Acute (3) Hypertension: Status: Chronic (4) Complete heart block: Status: Acute Discharge Plan Disposition Patient Disposition: Transfer-Acute Inpatient Care Specific Acute Inpt Facility: [facility] Condition: Stable Discharge Details Reason For Visit: Syncope Admit Date/Time: 10/06/22 12:01 Admit Provider: David Holloway Attending Provider: David Holloway Primary Care Provider: Marycruz Quevedo Hospital Course Hospital Course: This is a 67-year-old female patient with a history of hypertension hyperlipidemia who presented to the emergency department for evaluation after a syncopal episode. She states that she has been feeling dizzy with activity and has had 2 near syncope episodes prior 2 days but yesterday while rushing out to her vehicle states the next thing she knew she had a face full of gravel there was no injury on the fall her work-up in the emergency department was unrevealing she was in a sinus rhythm stable vital signs her potassium was 3.4 which was repleted and now 4.0, the rest of her electrolytes kidney function cbc all normal. Magnesium level was 1.9. Her EKG showed sinus rhythm with no acute ST segment changes. Her troponin and serial troponin remained negative. She had no chest pain or shortness of breath. She was referred to observation on telemetry and overnight remained in a sinus bradycardia with some intermittent dizziness especially with movement and activity. In the morning she was noted to have gone into heart block. Her case was discussed with [facility] cardiology Dr. Dumont who has accepted the patient in transfer for pacemaker under Dr. Peralta. She has been alternating between sinus bradycardia to heart block with symptoms of dizziness when in heart block. We did trial atropine which did not which did not elicit a response. She remained with a heart rate in the 30s. Her blood pressure has been stable in the 110's. She has had no chest pain or shortness of breath. She will remain in our ICU until a bed becomes available at [facility] where the plan is to transport her down by ground EMS with tool grinding machine operator services. External pacer pads have been placed. Care and report of patient has been handed off to DR Mohr for ICU management while awaiting transport. Home Meds and New Rx's Prescriptions: New potassium chloride 20 mEq tablet extended release 20 meq PO DAILY Qty: 14 0RF Continued ibuprofen 200 MG capsule 200 mg PO Q4H PRN cholecalciferol (vitamin D3) 1,000 UNIT capsule 1,000 unit PO DAILY atorvastatin 10 mg tablet 10 mg PO DAILY Patient Comments: TAKE 1 TABLET BY MOUTH EVERY DAY sertraline 100 MG tablet 100 mg PO HS amlodipine 5 mg Tablet 5 mg PO HS Discharge Instructions Instructions: Heart Block (DC) Stand Alone Forms: Nursing Discharge Form Referrals: Ysabel Yo MD [ [facility] STAFF PHYSICIAN] - (Office will call you with follow up appointment.) Marycruz Quevedo PA [Primary Care Provider] - 10/21/22 11:30 am Activity:: Activity as Tolerated Equipment/Supplies:: No Equipment Needed Diet:: As Tolerated Discharge Orders Discharge Orders: Discharge Order (Routine); Ordered 10/07/22 Ordered By: Anna Kemp DS: Summary Time Spent with Patient providing and/or coordinating discharge services: Greater than 30 minutes Status at Discharge Functional status at discharge: independent ambulation Overall status at discharge: patient is not back to baseline Mental Status: mental status grossly normal Speech and Movement: speech and movement normal Mood: congruent mood Affect: normal affect Exam Const General: cooperative, healthy appearing, comfortable and no acute distress Nutritional Appearance: average body habitus Orientation: alert, awake and oriented x3 HENMT Head: normal to inspection, normocephalic and atraumatic Mouth: oral mucosae normal Chest Chest: normal inspection of the chest Resp Effort & Inspection: normal respiratory effort Auscultation: clear to auscultation bilaterally Cardio Rate: bradycardic Rhythm: abnormal rhythm (heart block) GI Inspection: normal to inspection Palpation: soft Auscultation: normal bowel sounds Skin General skin exam: no rashes or lesions noted Neuro General: patient alert, patient awake and patient oriented x3 Cranial Nerves: CN's II-XI intact bilaterally Extrem General: normal to inspection, full ROM and no pedal edema Psych Mental Status: mental status grossly normal Speech and Movement: speech and movement normal Mood: congruent mood Affect: normal affect DS: Data Vitals/I&O Vitals and I&O: Vital Signs Temperature 36.5 C 10/07/22 07:32 Temperature Source Tympanic 10/07/22 07:32 Pulse 70 10/07/22 07:32 Pulse Rhythm Regular 10/07/22 01:11 Respiratory Rate 16 10/07/22 07:32 Respiratory Effort Normal, Non-Labored 10/07/22 01:11 Respiratory Depth Normal 10/07/22 01:11 Respiratory Pattern Normal 10/07/22 01:11 Blood Pressure 111/71 10/07/22 07:32 Blood Pressure Position Sitting 10/06/22 09:23 Pulse Oximetry 97 10/07/22 07:32 Oxygen Delivery Method Room Air 10/07/22 07:32 Oxygen Flow Rate 0 10/07/22 07:32 Pain Level 0 10/07/22 07:32 Comment Pt took several brisk loops around the MS unit. VSS. Pt reported a couple of blips of dark/lightheadedness but no other complaints or sx. 10/06/22 17:18 Intake & Output 10/06/22 10/06/22 10/07/22 11:59 23:59 11:59 Intake Total 10 / 490 480 / 490 Output Total 300 / 300 Balance 10 / 190 180 / 190 Weight 61.235 kg Intake: IV 10 / 10 Oral 480 / 480 Output: Urine 300 / 300 Other: Urine Color Yellow Urine Appearance Clear Clear Urine Odor Normal Comment per patient voided in toilet voided in toilet Voiding Methods Toilet Data Completed and Pending Completed studies during hospitalization [Text1]: echocardiogram: EXAM: Comprehensive 2D, Doppler, and color-flow Echocardiogram Patient Location: ER Room/Bed:? 1 Linen Checker: Mahad Stacy RDCS Indications: Syncope, CHF, HTN, bradycardia Other Information Study Quality: Good Conclusion Mild concentric left ventricular hypertrophy.? Ejection fraction is 60 to 65%.? Wall motion is normal Normal right ventricular size and systolic function Both atria are normal in size There is no structural or hemodynamically significant valvular disease Estimated right ventricular systolic pressure is 17 mmHg Dilated ascending aorta 3.41 cm Wall motion Left Ventricle The left ventricle is normal size. The left ventricular systolic function is normal. The left ventricular ejection fraction is within the normal range. Borderline concentric left ventricular hypertrophy. There is normal LV segmental wall motion. There is no ventricular septal defect visualized. LVEF is 60-65%. Right Ventricle The right ventricle is normal size. The right ventricular systolic function is normal. The RVSP is 17.2 mmHg. Atria The left atrium size is normal. The right atrium size is normal. The interatrial septum is intact with no evidence for an atrial septal defect. Aortic Valve The aortic valve is normal in structure. Aortic valve is trileaflet. There is no aortic valvular stenosis. Mitral Valve The mitral valve is normal in structure. No evidence of mitral valve stenosis. Trace mitral regurgitation. Tricuspid Valve The tricuspid valve is normal in structure. There is no tricuspid valve stenosis. Trace tricuspid regurgitation. Pulmonic Valve The pulmonary valve is normal in structure. There is no pulmonic valvular stenosis. Trace pulmonic regurgitation. Great Vessels The aortic root is normal in size. The ascending aorta is mildly dilated. Aortic arch is normal in caliber. IVC is normal in size and collapses >50% with inspiration. Pericardium There is no pericardial effusion. 2D Dimensions IVSD d PLAX? 1.17 cm F: 0.6-1.0 LVPW d PLAX? 1.15 cm F: 0.6 - 1.0 LVID d PLAX? 3.71 cm F: 3.8 - 5.2 LVDs? 2.45 cm F: 2.2 - 3.5 Ao Root d? 2.94 cm F: 2.7 - 3.3 RA Area A4C 9.39 cm2 Ao Asc Diam d? 3.41 cm F: 2.3 - 3.1 LV EF Teichholz? 63.3 % FS 33.60 % M-Mode TAPSE? 2.78 cm (M/F) >1.7 LV Diastology MV E' medial 0.085 (>0.07 m/s) E/A? Ratio? 0.8 LV E/e MED 9.89 (<14) MV E Vmax? 0.84 (0.4-1.3 m/s) MV E' lateral 0.044 (>0.1 m/s) MV A Vmax? 1.05 (0.4-1.3 m/s) LV E/e LAT 19.08 (<14) MV E/E' medial? 9.89 MV E/E' lateral 19.08 MV (E/E' average) 13.03 Aortic Valve LVOT Vmax? 1.08 m/s AoV Area Vmax 2.06 cm2 LVOT Peak Grad? 4.6 mmHg LVOT Mean Grad? 2.4 mmHg LVOT Diam s? 1.85 cm AoV Vmax 1.48 m/s Velocity Ratio? 0.73 AoV Peak Grad 8.7 mmHg LVOT SV? 69.88 mL AoV Mean Grad 4.6 mmHg AoV Area VTI 1.97 cm2 Mitral Valve MV DT? 226 (160-240 msec) Pulmonary Valve PV Mean Grad? 1.7 mmHg RVOT Peak Gr. 2.06 mmHg RVOT Mean Gr. 1.05 mmHg RVOT VTI 0.179 m RVOT Vmax? 0.72 m/s Tricuspid Valve TR Peak Grad? 14.1 mmHg TR Vmax? 1.88 m/s RA Pressure? 3.00 mmHg RVSP (TR)? 17.2 mmHg Ordered By:? David Holloway M.D. CC: ? Labs on day of discharge: Labs from last 24 hours 10/07/22 10/07/22 10/06/22 06:30 06:30 13:00 WBC 5.35 RBC 4.33 Hgb 14.1 Hct 39.8 MCV 92 MCH 32.6 MCHC 35.4 RDW 12.1 Plt Count 265 MPV 10.7 Immature Gran % 0.2 Neutrophils % 54.7 Lymphocytes % 25.6 Monocytes % 13.5 Eosinophils % 4.9 Basophils % 1.1 Nucleated RBC % 0.0 Absolute Neutrophils 2.93 Absolute Lymphocytes 1.37 Absolute Monocytes 0.72 Absolute Eosinophils 0.26 Absolute Basophils 0.06 Sodium 140 Potassium 4.0 Chloride 105 Carbon Dioxide 25.7 Anion Gap 9.3 BUN 19 H Creatinine 0.8 Est GFR (CKD-EPI 2020) 80.71 Glucose 112 H Calcium 9.2 Magnesium Total Bilirubin AST ALT Alkaline Phosphatase Troponin I < 50 Total Protein Albumin TSH Urine Color Urine Clarity Urine pH Ur Specific [place] Urine Protein Urine Ketones Urine Blood Urine Nitrite Urine Bilirubin Urine Urobilinogen Ur Leukocyte Esterase Urine Glucose 10/06/22 10/06/22 10/06/22 09:50 09:40 09:40 WBC 6.16 RBC 4.73 Hgb 15.2 Hct 43.4 MCV 92 MCH 32.1 MCHC 35.0 RDW 12.0 Plt Count 256 MPV 10.6 Immature Gran % 0.3 Neutrophils % 68.5 Lymphocytes % 16.6 Monocytes % 10.2 Eosinophils % 3.6 Basophils % 0.8 Nucleated RBC % 0.0 Absolute Neutrophils 4.22 Absolute Lymphocytes 1.02 L Absolute Monocytes 0.63 Absolute Eosinophils 0.22 Absolute Basophils 0.05 Sodium 137 Potassium 3.4 L Chloride 101 Carbon Dioxide 27.7 Anion Gap 8.3 BUN 14 Creatinine 0.8 Est GFR (CKD-EPI 2020) 80.71 Glucose 128 H Calcium 9.2 Magnesium 1.9 Total Bilirubin 0.5 AST 21 ALT 28 Alkaline Phosphatase 83 Troponin I < 50 Total Protein 8.2 Albumin 4.5 TSH 0.87 Urine Color Yellow Urine Clarity Clear Urine pH 7.0 Ur Specific [place] 1.015 Urine Protein Negative Urine Ketones Negative Urine Blood Negative Urine Nitrite Negative Urine Bilirubin Negative Urine Urobilinogen 0.2 Ur Leukocyte Esterase Negative Urine Glucose Negative PFSH All Active Problems (Updated 10/07/22 @ 11:33 by Anna Kemp NP) Complete heart block (Acute) Hypertension (Chronic) Syncope (Chronic) Hypokalemia (Acute) Normal colonoscopy (Acute) Hx of colonic polyps (Acute) Medical History Acquired auditory processing disorder Anxiety Basal cell carcinoma, face Benign skin lesion of nose Cognitive changes Depression High cholesterol Hypertension Low back pain Tubular adenoma 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 Stevie Tolliver) Sigmoidoscopy exam (~02/2018) Family History Other Alzheimer's dementia CHF (congestive heart failure) Cardiac arrest Lung cancer Social History Smoking/Tobacco Use Status: Never Smoking risk assessment performed?: Yes Alcohol Intake: current Alcohol Intake frequency: holidays/special occasions only Alcohol type: beer Drug use: Never Substance use type: does not use Housing: house Do you feel safe at home: Yes Do you feel safe in your relationship?: Yes Time Spent with Patient Time Spent with Patient: 45-69 minutes Time was spent: preparing to see the patient(eg.review tests), obtaining and/or reviewing separately otained hiistory, ordering medications,tests, procedures, referring, communicating with other health nonfarm animal caretaker, indepentently interpreting results, counseling the patient and care coordination
--- NOTE | 2022-10-07 09:15 | RT.EKG_ITS ---
APPROVED REPORT Exam: Resting ECG Reason for Exam: bradycardia, ? heart block Patient Location: I HR:46 bpm ECG Measurements Heart Rate 46 AXIS PA 263 P 68 QRSd 88 QRS 1 QT 483 T 44 QTc 423 Conclusion A-V dissociation Ventricular escape
--- NOTE | 2022-10-07 10:06 | INITIAL_ITS ---
Date of service: 10/07/22 Time of Service: 10:06 Care Management Initial Assmt Initial Assessment REASON FOR HOSPITALIZATION:: Syncope PREVIOUS FUNCTIONAL STATUS/SOCIAL/FAMILY SUPPORTS:: Ysabel lives in a single family home in [place], [place] with her Odin. She has 3 sons, Luigi, Waylon and Francisco. One son lives locally with his family and the other 2 live out of state in [place] and [place]. 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 She is independent at baseline and does not receive any community services. CURRENT FUNCTIONAL STATUS:: Ysabel was sitting up in bed visiting with her [id number] when CM met with her. She was found to be in third degree heart block this morning and is awaiting transport to [facility]. Ysabel informed CM that she feels well and her biggest concern is that she will miss the first day of school on Monday. She shared that the first day of school is difficult for many students, particularly the ones with special needs. She stated that she hopes that she will not need to remain at [facility] for very long. ADVANCE DIRECTIVES:: On file. [facility] Has patient been provided with info about the portal/API?: Yes Did the patient sign up for the portal?: No CODE STATUS:: Full Code INSURANCE COVERAGE / FINANCIAL ISSUES:: /[employer] [facility] CURRENT HOME/COMMUNITY SERVICES/EQUIPMENT:: none PRIMARY CARE PHYSICIAN:: Marycruz Quevedo POTENTIAL DISCHARGE NEEDS:: follow up with Cardiology PATIENT/FAMILY EDUCATION NEEDS:: Expectations, limitations TRANSPORTATION:: via EMS PLAN:: Ysabel will be transferred to a tertiary care facility for cardiac evaluation and possible pacemaker. She will be transported vis EMS coordinated by nursing garment manufacturing supervisor. She has been accepted at [facility] but no bed has been available. 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 Stevie Tolliver) Sigmoidoscopy exam (~02/2018) Family History Other Alzheimer's dementia CHF (congestive heart failure) Cardiac arrest Lung cancer Social History Smoking/Tobacco Use Status: Never Smoking risk assessment performed?: Yes Alcohol Intake: current Alcohol Intake frequency: holidays/special occasions only Alcohol type: beer Drug use: Never Substance use type: does not use Housing: house Do you feel safe at home: Yes Do you feel safe in your relationship?: Yes
[2022-10-07] MEDS: Atropine 1 MG/10 ML SYRINGE 0.25 MG IVP (13:04)
--- NOTE | 2022-10-07 14:39 | NUR.NOTE ---
Pt transferred to ICU at 1215. Ambulated with RN; in stable condition. Report given to EMMY Tam.
--- NOTE | 2022-10-07 16:15 | RT.EKG_ITS ---
APPROVED REPORT Exam: Resting ECG Reason for Exam: EKG changes Patient Location: I HR:36 bpm ECG Measurements Heart Rate 36 AXIS VT [id number] P [id number] QRSd 102 QRS 15 QT 508 T 46 QTc 393 Conclusion A-V dissociation
[2022-10-07 17:26] LABS: Troponin I < 50 ng/L (<or=60)
== END 2022-10-07 20:10 | disposition short-term general hospital (02) ==
LOC: ER 12:14 → MS 13:18 → ICU 10-07 12:39
PROVIDERS: Family Medicine; Nurse Practitioner Acute Care; Admitting Provider Internal Medicine; Emergency Provider Student in an Organized Health Care Education/Training Program; PCP Physician Assistant Medical; Visit Provider Internal Medicine
DX: E87.6 Hypokalemia (principal); R55 Syncope and collapse; W19.XXXA Unspecified fall, initial encounter; F41.9 Anxiety disorder, unspecified; I44.2 Atrioventricular block, complete; E78.00 Pure hypercholesterolemia, unspecified; M54.50 Low back pain, unspecified; Z79.899 Other long term (current) drug therapy; Z90.49 Acquired absence of other specified parts of digestive tract; R00.1 Bradycardia, unspecified; I50.9 Heart failure, unspecified; I11.0 Hypertensive heart disease with heart failure; Z86.010 Personal history of colon polyps
CPT/HCPCS: 36415; 80048; 80053; 93005; 96374; 99285; 70450; 71046; 81003; 83735; 84443; 84484; 85025; 93010; 93306; 99222; 99239; 99284; G0378

== ENCOUNTER 2022-11-28 11:22 | Outpatient (REF) | payer BC, SELFPAY ==
[2022-11-28 17:17] LABS: Abs Immature Grans 0.03 10^3/uL (0.0-0.06); Absolute Basophil Count 0.06 10^3/uL (0.0-0.2); Absolute Eosinophil Count 0.21 10^3/uL (0.0-0.7); Absolute Lymphocyte Count 1.18 10^3/uL (1.2-3.4); Absolute Monocyte Count 0.79 10^3/uL (0.1-0.8); Absolute Neutrophil Count 3.28 10^3/uL (1.2-6.7); Basophils % 1.1; Eosinophils % 3.8; HCT 40.5 % (36.0-46.0); HGB 14.1 g/dL (11.2-15.7); Immature Grans % 0.5; Lymphocytes % 21.3; MCH 31.7 pg (27.0-33.0); MCHC 34.8 % (32.0-36.0); MCV 91 fL (80-95); Monocytes % 14.2; Neutrophils % 59.1; Platelet Count 261 10^3/uL (130-400); RBC 4.45 10^6/uL (3.93-5.22); RDW 12.2 % (11.7-14.6); RDW-SD 40.4 fL; WBC 5.55 10^3/uL (4.4-10.8)
[2022-11-28 17:39] LABS: ALT 26 U/L (14-59); AST 23 U/L (15-37); Albumin 4.2 g/dL (3.4-5.0); Alkaline Phosphatase 79 U/L (46-116); Anion Gap 7.5 mmol/L (3-11); BUN 13 mg/dL (7-18); CO2 27.5 mmol/L (21.0-32.0); CREATININE 0.8 mg/dL (0.55-1.02); Calcium 9.6 mg/dL (8.5-10.1); Chloride 103 mmol/L (98-107); Estimated GFR 80.71 (mL/min/1.73m2); Glucose 125 mg/dL (74-106); Potassium 3.6 mmol/L (3.5-5.1); Sodium 138 mmol/L (136-145); Total Protein 7.9 g/dL (6.4-8.2)
[2022-11-28 17:43] LABS: Hemoglobin A1C 5.9 % (<5.7)
== END 2022-11-28 11:23 | disposition home or self-care (01) ==
LOC: NCHCN 11:22
PROVIDERS: PCP Physician Assistant Medical; Visit Provider Physician Assistant Medical
DX: I10 Essential (primary) hypertension (principal); I44.2 Atrioventricular block, complete; R73.03 Prediabetes
CPT/HCPCS: 80053; 83036; 83735; 85025

== ENCOUNTER 2023-03-23 15:13 | Outpatient (REF) | payer BC, SELFPAY ==
[2023-03-23 18:58] LABS: Abs Immature Grans 0.02 10^3/uL (0.0-0.06); Absolute Basophil Count 0.07 10^3/uL (0.0-0.2); Absolute Eosinophil Count 0.23 10^3/uL (0.0-0.7); Absolute Lymphocyte Count 1.32 10^3/uL (1.2-3.4); Absolute Monocyte Count 0.75 10^3/uL (0.1-0.8); Basophils % 1.1; Eosinophils % 3.6; HCT 37.9 % (36.0-46.0); HGB 13.5 g/dL (11.2-15.7); Immature Grans % 0.3; Lymphocytes % 20.7; MCHC 35.6 % (32.0-36.0); MCV 90 fL (80-95); MPV 10.4 fL (8.0-11.0); Monocytes % 11.7; Neutrophils % 62.6; Platelet Count 280 10^3/uL (130-400); RBC 4.22 10^6/uL (3.93-5.22); RDW 12.5 % (11.7-14.6); WBC 6.39 10^3/uL (4.4-10.8)
[2023-03-23 19:20] LABS: ALT 26 U/L (14-59); AST 21 U/L (15-37); Albumin 3.9 g/dL (3.4-5.0); Alkaline Phosphatase 62 U/L (46-116); Anion Gap 10.5 mmol/L (3-11); BUN 21 mg/dL (7-18); Bilirubin, Total 0.4 mg/dL (0.2-1.0); CO2 26.5 mmol/L (21.0-32.0); CREATININE 0.9 mg/dL (0.55-1.02); Calcium 9.2 mg/dL (8.5-10.1); Chloride 105 mmol/L (98-107); Estimated GFR 70.07 (mL/min/1.73m2); Glucose 136 mg/dL (74-106); Potassium 3.9 mmol/L (3.5-5.1); Sodium 142 mmol/L (136-145); TSH (W/Ref FT4) 0.64 uIU/mL (0.36-3.74); Total Protein 7.6 g/dL (6.4-8.2)
== END 2023-03-23 15:14 | disposition home or self-care (01) ==
LOC: NCHCN 15:13
PROVIDERS: PCP Physician Assistant Medical; Visit Provider Nurse Practitioner Family
DX: R55 Syncope and collapse (principal); I10 Essential (primary) hypertension
CPT/HCPCS: 80053; 84443; 85025

== ENCOUNTER 2023-07-27 20:38 | Outpatient (REF) | payer BC, SELFPAY ==
[2023-07-27 19:15] LABS: Hemoglobin A1C 6.1 % (<5.7)
[2023-07-27 19:27] LABS: Calculated LDL 105 mg/dL (<100); Cholesterol 210 mg/dL (<200); HDL Cholesterol 54 mg/dL (40-60); Triglyceride 258 mg/dL (<150)
== END 2023-07-27 20:39 | disposition home or self-care (01) ==
LOC: NCHCN 20:38
PROVIDERS: PCP Physician Assistant Medical; Visit Provider Physician Assistant Medical
DX: E78.5 Hyperlipidemia, unspecified (principal); R73.03 Prediabetes
CPT/HCPCS: 80061; 83036

== ENCOUNTER 2024-01-04 02:11 | Outpatient (CLI) | payer BC, SELFPAY ==
--- NOTE | 2024-01-04 | DI.MAMMO_ITS ---
Exam(s) MAMMO SCREENING EXAM: MAMMO SCREENING CLINICAL HISTORY: SCREENING MAMMO Z12.31. TECHNIQUE: Bilateral full field digital CC and MLO mammographic images were obtained with 3D tomosyn thesis and utilizing computer aided detection (CAD). COMPARISON: Prior mammograms were reviewed. FINDINGS: There has been no significant change in the appearance and distribution of the fibroglandular tissue. There are no CAD designations. There are no new spiculated masses nor malignant appearing microcalcification groups. There is no significant architectural distortion nor skin thickening-retraction. IMPRESSION: No radiographic evidence of malignancy. BI-RADS Category 1 - Negative Breast Density - Category B - Scattered areas of fibroglandular density Breast density Category C or D implies that the patient has dense breast tissue. Dense breast tissue can make it harder to find cancer on a mammogram. Dense breast tissue is also associated with an incr eased risk of breast cancer. This information about the result of the mammogram report was provided to the patient to raise their awareness. Use this report when you speak with the patient about their risks for breast cancer, which includes their family history. At that time, you may recommend additional screening tests (Ultrasoun d or MRI) as these tests may add significant information. A negative radiographic report should not delay biopsy if a dominant or clinically suspicious mass is present. Up to ten percent of cancers are not identified on mammography. A negative report may reinforce clinical impression. Adenosis and dense breasts may obscure an underlying neoplasm. False positive reports average 6 to 10%. Patient will receive a letter notifying them of these results.
--- NOTE | 2024-01-04 | DI.DEXA_ITS ---
Exam(s) XR DEXA BONE DENSITY W/WO JULES EXAM: XR DEXA BONE DENSITY W/WO JULES CLINICAL HISTORY: ASYMPTOMATIC MENOPAUSAL STATE Z78.0 TECHNIQUE: Holo[employer] Horizon C densitometer analysis of left hip, lumbar spine and left forearm. Lat eral survey image of the thoracic and lumbar spine. COMPARISON: No exams were available for comparison FINDINGS: Lateral view of the thoracic and lumbar spine shows no evidence of compression fractures. Bone mineral density measurements of the lumbar spine correspond to a total T-score of -0.9, in the normal range. Bone mineral density measurements of the left hip correspond to a total T-score of -1.4. The femora l neck T-score is -2.3, in the osteopenic range.. Theleft forearm bone mineral density measurements correspond to a T-score of the distal 3rd of -1.4, in the osteopenic range.. IMPRESSION: Normal bone mineral density of the lumbar spine. Osteopenia of the hip and forearm.
== END 2024-01-04 02:31 ==
LOC: DI 02:12
PROVIDERS: PCP Physician Assistant Medical; Visit Provider Physician Assistant Medical
DX: Z12.31 Encounter for screening mammogram for malignant neoplasm of breast (principal)
CPT/HCPCS: 77063; 77067; 77080

== ENCOUNTER 2024-03-13 19:07 | Outpatient (REF) | payer BC, SELFPAY ==
[2024-03-13 19:47] LABS: ESR 7 mm/hr (0-30)
[2024-03-13 20:02] LABS: C-Reactive Protein < 0.50 mg/dL (<or=0.5)
[2024-03-13 20:52] LABS: Hemoglobin A1C 6.1 % (<5.7)
[2024-03-14 20:44] LABS: Rheumatoid Factor 9.5 IU/mL (<12.0)
[2024-03-15 10:51] LABS: ANA Interpretation Negative (Negative)
[2024-03-16 13:36] LABS: c-ANCA Negative (Negative); p-ANCA Negative (Negative)
[2024-03-18 08:35] LABS: HLA-B27 Result Negative
== END 2024-03-13 19:08 | disposition home or self-care (01) ==
LOC: NCHCN 19:07
PROVIDERS: PCP Physician Assistant Medical; Visit Provider Physician Assistant Medical
DX: M25.59 Pain in other specified joint (principal); R73.03 Prediabetes
CPT/HCPCS: 85652; 86812; 83036; 86038; 86140; 86255; 86431

== ENCOUNTER 2024-03-22 01:01 | Outpatient (CLI) | payer BC, SELFPAY ==
--- NOTE | 2024-03-22 | DI.RAD_ITS ---
Exam(s) XR FOOT LT COMPLETE EXAM: XR FOOT LT COMPLETE CLINICAL HISTORY: LT FOOT PAIN. TECHNIQUE: 2D digital imaging was performed of the left foot. Three images were obtained. AP, obli que and lateral views were obtained. COMPARISON: There are no priors for comparison. FINDINGS: BONES: No acute fracture is present. No bony destructive lesion is seen. There is a chronic deformity seen in the lateral aspect of the head of the 5th metatarsal. It does not appear to be acute. JOINTS: No dislocation present. There are mild degenerative changes seen in the toes. SOFT TISSUE: Normal. IMPRESSION: No acute abnormality. DATA REPOSITORY: RADIATION DOSE DELIVERED:
--- NOTE | 2024-03-22 | DI.RAD_ITS ---
Exam(s) XR FOOT RT COMPLETE EXAM: XR FOOT RT COMPLETE CLINICAL HISTORY: RT FOOT PAIN. TECHNIQUE: 2D digital imaging was performed of the right foot. Three images were obtained. AP, obl ique and lateral views were obtained. COMPARISON: No exams were available for comparison FINDINGS: BONES: No acute fracture is present. No bony destructive lesion is seen. There is a small plantar nora caneal spur. JOINTS: No dislocation present. There are mild degenerative changes seen in the toes. There is a mil d hallux valgus deformity. SOFT TISSUE: Normal. IMPRESSION: Mild degenerative changes. Calcaneal spur. DATA REPOSITORY: RADIATION DOSE DELIVERED:
== END 2024-03-22 01:21 ==
LOC: DI 01:01
PROVIDERS: PCP Physician Assistant Medical; Visit Provider Physician Assistant Medical
DX: M77.31 Calcaneal spur, right foot (principal); M79.672 Pain in left foot
CPT/HCPCS: 73630

== ENCOUNTER 2024-06-19 08:26 | Outpatient (REF) | payer BC, SELFPAY ==
[2024-06-19 15:53] LABS: Abs Immature Grans 0.02 10^3/uL (0.0-0.06); Absolute Basophil Count 0.06 10^3/uL (0.0-0.2); Absolute Eosinophil Count 0.15 10^3/uL (0.0-0.7); Absolute Lymphocyte Count 2.45 10^3/uL (1.2-3.4); Absolute Monocyte Count 0.82 10^3/uL (0.1-0.8); Absolute Neutrophil Count 4.09 10^3/uL (1.2-6.7); Basophils % 0.8 %; HGB 14.8 g/dL (11.2-15.7); Immature Grans % 0.3 %; Lymphocytes % 32.3 %; MCHC 35.2 % (32.0-36.0); MCV 94 fL (80-95); MPV 10.6 fL (8.0-11.0); Monocytes % 10.8 %; Neutrophils % 53.8 %; Platelet Count 257 10^3/uL (130-400); RBC 4.48 10^6/uL (3.93-5.22); RDW 12.9 % (11.7-14.6); RDW-SD 44.2 fL; WBC 7.59 10^3/uL (4.4-10.8)
[2024-06-19 16:42] LABS: ALT 30 U/L (14-59); AST 20 U/L (15-37); Alkaline Phosphatase 49 U/L (46-116); Anion Gap 10.8 mmol/L (3-11); BUN 19 mg/dL (7-18); Bilirubin, Total 0.7 mg/dL (0.2-1.0); CO2 25.2 mmol/L (21.0-32.0); CREATININE 0.9 mg/dL (0.55-1.02); Calcium 9.1 mg/dL (8.5-10.1); Chloride 105 mmol/L (98-107); Glucose 130 mg/dL (74-106); Magnesium 2.1 mg/dL (1.8-2.4); Potassium 3.9 mmol/L (3.5-5.1); Sodium 141 mmol/L (136-145); Total Protein 7.1 g/dL (6.4-8.2); Vitamin D 25 Total 34 ng/mL (30-100)
== END 2024-06-19 08:27 | disposition home or self-care (01) ==
LOC: NCHCN 08:26
PROVIDERS: PCP Physician Assistant Medical; Visit Provider Physician Assistant Medical
DX: R73.03 Prediabetes (principal); R53.83 Other fatigue
CPT/HCPCS: 80053; 82306; 83036; 83735; 85025

== ENCOUNTER 2024-06-28 13:15 | Outpatient (REF) | payer BC, SELFPAY ==
[2024-07-02 14:38] LABS: Ro60 Ab, IgG <7.0 CU (<20.0); SS-A/Ro, IgG <2.3 CU (<20.0); SS-B (La) Ab, IgG <3.3 CU (<20.0)
== END 2024-06-28 13:16 | disposition home or self-care (01) ==
LOC: NCHCN 13:15
PROVIDERS: PCP Physician Assistant Medical; Visit Provider Physician Assistant Medical
DX: M25.59 Pain in other specified joint (principal)
CPT/HCPCS: 86235

== ENCOUNTER → 2024-10-16 08:34 | Outpatient (BNVA) | payer MEDICARE, SELFPAY | PROVIDERS: PCP Physician Assistant Medical; Referring Provider Physician Assistant Medical; Visit Provider Podiatrist | DX: M79.672 Pain in left foot (principal); M79.671 Pain in right foot; M72.2 Plantar fascial fibromatosis; M67.01 Short Achilles tendon (acquired), right ankle; M67.02 Short Achilles tendon (acquired), left ankle; G57.53 Tarsal tunnel syndrome, bilateral lower limbs; M66.872 Spontaneous rupture of other tendons, left ankle and foot; S93.692A Other sprain of left foot, initial encounter; S96.912A Strain of unspecified muscle and tendon at ankle and foot level, left foot, initial encounter; X58.XXXA Exposure to other specified factors, initial encounter; R20.2 Paresthesia of skin | CPT/HCPCS: 99215; 29580; 29850 ==

== ENCOUNTER → 2024-11-06 09:16 | Outpatient (BNVA) | payer MEDICARE, SELFPAY | PROVIDERS: PCP Physician Assistant Medical; Referring Provider Physician Assistant Medical; Visit Provider Podiatrist | DX: M72.2 Plantar fascial fibromatosis (principal); M67.01 Short Achilles tendon (acquired), right ankle; M67.02 Short Achilles tendon (acquired), left ankle; M79.671 Pain in right foot; M79.672 Pain in left foot; G57.53 Tarsal tunnel syndrome, bilateral lower limbs; G62.9 Polyneuropathy, unspecified; R20.2 Paresthesia of skin; S96.912A Strain of unspecified muscle and tendon at ankle and foot level, left foot, initial encounter | CPT/HCPCS: 99214 ==

== ENCOUNTER 2024-11-20 14:08 | Outpatient (REF) | payer MEDICARE, SELFPAY ==
[2024-11-20 16:32] LABS: ALT 29 U/L (14-59); AST 20 U/L (15-37); Albumin 4.3 g/dL (3.4-5.0); Alkaline Phosphatase 67 U/L (46-116); Anion Gap 9.1 mmol/L (3-11); BUN 10 mg/dL (7-18); Bilirubin, Total 0.7 mg/dL (0.2-1.0); CO2 28.9 mmol/L (21.0-32.0); Calcium 9.4 mg/dL (8.5-10.1); Calculated LDL 119 mg/dL (<100); Chloride 104 mmol/L (98-107); Cholesterol 204 mg/dL (<200); Estimated GFR 79.71 (mL/min/1.73m2); Glucose 109 mg/dL (74-106); HDL Cholesterol 58 mg/dL (>or=50); Hemoglobin A1C 6.4 % (<5.7); Potassium 4.6 mmol/L (3.5-5.1); Sodium 142 mmol/L (136-145); Total Protein 7.3 g/dL (6.4-8.2); Triglyceride 136 mg/dL (<150)
== END 2024-11-20 14:09 | disposition home or self-care (01) ==
LOC: NCHCN 14:08
PROVIDERS: PCP Physician Assistant Medical; Visit Provider Physician Assistant Medical
DX: R73.03 Prediabetes (principal); E78.5 Hyperlipidemia, unspecified
CPT/HCPCS: 80053; 80061; 83036

== ENCOUNTER 2024-12-18 08:10 | Outpatient (CLI) | payer MEDICARE, SELFPAY ==
--- NOTE | 2024-12-18 08:00 | RT.EKG_ITS ---
APPROVED REPORT Exam: Resting ECG Reason for Exam: CHB, pacemaker Patient Location: O HR:67 bpm ECG Measurements Heart Rate 67 AXIS ID 146 P -5 QRSd 93 QRS -11 QT 417 T 60 QTc 441 Conclusion Sinus rhythm...normal P axis, V-rate 50- 99 Normal ElectrocardiogramV
== END 2024-12-18 08:11 | disposition home or self-care (01) ==
LOC: DI.CARD 08:11
PROVIDERS: PCP Physician Assistant Medical; Visit Provider Internal Medicine Cardiovascular Disease
DX: I44.2 Atrioventricular block, complete (principal); Z95.0 Presence of cardiac pacemaker
CPT/HCPCS: 93010

== ENCOUNTER → 2024-12-18 08:26 | Outpatient (BNVA) | payer MEDICARE, SELFPAY | PROVIDERS: PCP Physician Assistant Medical; Referring Provider Physician Assistant Medical; Visit Provider Internal Medicine Cardiovascular Disease | DX: I44.2 Atrioventricular block, complete (principal); Z45.018 Encounter for adjustment and management of other part of cardiac pacemaker | CPT/HCPCS: 93280; 93005 ==

== ENCOUNTER → 2025-01-01 09:25 | Outpatient (BNVA) | payer MEDICARE, SELFPAY | PROVIDERS: PCP Physician Assistant Medical; Referring Provider Physician Assistant Medical; Visit Provider Podiatrist | DX: M72.2 Plantar fascial fibromatosis (principal); M67.01 Short Achilles tendon (acquired), right ankle; M67.02 Short Achilles tendon (acquired), left ankle; G57.53 Tarsal tunnel syndrome, bilateral lower limbs; G62.9 Polyneuropathy, unspecified; M79.671 Pain in right foot; M79.672 Pain in left foot; S96.912A Strain of unspecified muscle and tendon at ankle and foot level, left foot, initial encounter; X58.XXXA Exposure to other specified factors, initial encounter | CPT/HCPCS: 99213 ==

== ENCOUNTER → 2025-01-30 00:17 | Outpatient (CLI) | payer MEDICARE, SELFPAY ==
--- NOTE | 2025-01-30 08:45 | DI.RAD_ITS ---
Exam(s) XR CHEST 2V PA LATERAL EXAM: XR CHEST 2V PA LATERAL CLINICAL HISTORY: PAIN AT RIB CASE TECHNIQUE: 2D digital imaging was performed of the chest. Two images were obtained. PA and lateral views were obtained. COMPARISON: CR XR CHEST 2V PA LATERAL from 10/06/2022 FINDINGS: MEDIASTINUM: Normal. HEART: Normal. The pacing device is in stable position. PULMONARY VASCULATURE: Normal. LUNGS: Clear. PLEURAL SPACE: No pleural effusion or pneumothorax. BONE:Within normal limits for the patient's age. OTHER FINDINGS:Normal. IMPRESSION: No acute pulmonary findings. DATA REPOSITORY: RADIATION DOSE DELIVERED:
--- NOTE | 2025-01-30 08:46 | DI.RAD_ITS ---
Exam(s) XR SHOULDER RT COMPLETE 2+V EXAM: XR SHOULDER RT COMPLETE 2+V CLINICAL HISTORY: PAIN RT SHOULDER,? INFLAMMATORY ARTHRITIS,M25.511,M25.512. TECHNIQUE: 2D digital imaging was performed of the right shoulder. Four images were obtained. AP, Grashey, Y-view and axillary views were obtained. COMPARISON: CR RIGHT SHOULDER COMPLETE from 12/30/2008 FINDINGS: BONES: No acute fracture is present. No bony destructive lesion is seen. JOINTS: No dislocation present. There are mild degenerative changes seen at both the acromioclavicular and glenohumeral joints. There is a well corticated osseous density adjacent to the acromioclavicular joint which is old. No erosive changes are identified. SOFT TISSUE: Normal. IMPRESSION: Mild degenerative changes seen around the right shoulder. DATA REPOSITORY: RADIATION DOSE DELIVERED:
== END ==
PROVIDERS: PCP Physician Assistant Medical
DX: R07.89 Other chest pain (principal); M25.511 Pain in right shoulder; M25.512 Pain in left shoulder
CPT/HCPCS: 71046; 73030